=== PATIENT | female | born 1970 | race Caucasian/White ===

== ENCOUNTER → 2017-08-19 12:22 | Outpatient (POV) | payer MEDICARE, BC, SELFPAY | PROVIDERS: Visit Provider Neurological Surgery | DX: Z00.00 Encounter for general adult medical examination without abnormal findings (principal) ==

== ENCOUNTER → 2019-01-16 08:07 | Outpatient (CLI) | payer MEDICARE, BC, SELFPAY ==
[2019-01-16 08:28] LABS: Basophils % 0.5 % (0.1-2.0); Eosinophils # 0.1 K/mm3 (0.0-0.4); Eosinophils % 1.2 % (0.1-12.0); Hematocrit 43.8 % (37.0-47.0); Hemoglobin 14.4 g/dL (12.2-16.2); Lymphocytes # 1.6 K/mm3 (0.7-4.5); Lymphocytes % 20.3 % (10-50); Mean Corpuscular Hemoglobin 34.9 pg (27.0-31.2); Mean Corpuscular Volume 105.9 fl (81-99); Mean Platelet Volume 6.9 fl (7.4-10.4); Monocytes # 0.3 K/mm3 (0.1-1.0); Monocytes % 3.8 % (1.7-9.3); Neutrophils # 5.8 K/mm3 (1.8-7.8); Neutrophils % 74.2 % (37.0-80.0); Platelet Count 270 K/mm3 (142-424); Red Blood Count 4.14 M/mm3 (4.20-5.40); Red Cell Distribution Width 14.2 % (11.5-17.5); White Blood Count 7.9 K/mm3 (4.8-10.8)
[2019-01-16 08:51] LABS: INR 1.01 (0.9-1.1); Prothrombin Time 10.5 seconds (9.4-11.8)
[2019-01-16 11:03] LABS: Alanine Aminotransferase 38 U/L (12-78); Albumin Level 3.2 gm/dL (3.4-5.0); Alkaline Phosphatase 61 U/L (46-116); Anion Gap 11.4 mEq/L (5-15); Aspartate Amino Transferase 33 U/L (15-37); Bilirubin,Total 0.5 mg/dL (0.2-1.0); Blood Urea Nitrogen 8 mg/dL (7-18); Carbon Dioxide 27 mmol/L (21.0-32.0); Chloride 106 mmol/L (98-107); Chol/HDL Ratio 3.5 (1-3.5); Cholesterol 171 mg/dL (140-200); Creatinine,Serum 0.98 mg/dL (0.55-1.02); Estimated Glomerular Filt Rate 61 ml/min (>60); Free T4 (Free Thyroxine) 0.75 ng/dl (0.76-1.46); GFR (African American) 74 ML/MIN (>60); Globulin 3.2 gm/dl (1.3-3.2); Glucose 81 mg/dL (74-106); HDL Cholesterol 49 mg/dL (29-89); LDL Cholesterol 101 mg/dL (0-130); Potassium 3.4 mmoL/L (3.5-5.1); Sodium 141 mmol/L (136-145); Thyroid Stimulating Hormone 0.92 uIU/ml (0.358-3.740); Total Protein,Serum 6.4 gm/dL (6.4-8.2); Triglycerides 106 mg/dL (30-200); VLDL Cholesterol 21 mg/dL (0-40)
[2019-01-18 09:32] LABS: Vitamin D 25 Hydroxy 39.4 ng/mL (30.0-100.0)
== END ==
PROVIDERS: Visit Provider Emergency Medicine
DX: R53.83 Other fatigue (principal); F31.9 Bipolar disorder, unspecified; R07.9 Chest pain, unspecified; R53.1 Weakness; E78.5 Hyperlipidemia, unspecified; M54.9 Dorsalgia, unspecified
CPT/HCPCS: 36415; 80053; 80061; 82652; 84439; 84443; 85025; 85610

== ENCOUNTER → 2019-01-19 16:58 | Outpatient (CLI) | payer MEDICARE, BC, SELFPAY ==
[2019-01-19 19:06] LABS: Anion Gap 13.2 mEq/L (5-15); Blood Urea Nitrogen 13 mg/dL (7-18); Calcium 8.9 mg/dL (8.5-10.1); Carbon Dioxide 29 mmol/L (21.0-32.0); Chloride 102 mmol/L (98-107); Creatinine,Serum 0.94 mg/dL (0.55-1.02); Estimated Glomerular Filt Rate 64 ml/min (>60); GFR (African American) 78 ML/MIN (>60); Glucose 80 mg/dL (74-106); Potassium 4.2 mmoL/L (3.5-5.1); Sodium 140 mmol/L (136-145)
== END ==
LOC: LAB 16:59
PROVIDERS: Visit Provider Physician Assistant
DX: E87.6 Hypokalemia (principal)
CPT/HCPCS: 36415; 80048

== ENCOUNTER → 2019-01-23 10:45 | Outpatient (POV) | payer MEDICARE, BC, SELFPAY ==
[2019-01-23 11:05] VITALS: BP 137/82; PULSE 94; RESP 18; O2SAT 98; BMI 28.8
--- NOTE | 2019-01-23 13:26 | HMH.PMCON ---
Assessment and Plan (1) Cervical radiculopathy due to degenerative joint disease of spine Current visit: Yes Status: Chronic Category: Medical Code(s): M47.22 - Other spondylosis with radiculopathy, cervical region (2) Degenerative disc disease, lumbar Current visit: Yes Status: Chronic Category: Medical Code(s): M51.36 - Other intervertebral disc degeneration, lumbar region (3) Lumbar radiculopathy Current visit: Yes Status: Chronic Category: Medical Code(s): M54.16 - Radiculopathy, lumbar region (4) Cervical spondylosis Current visit: No Status: Chronic Qualifiers: Spinal osteoarthritis complication: with radiculopathy Qualified Code(s): M47.22 - Other spondylosis with radiculopathy, cervical region Category: Medical Code(s): M47.812 - Spondylosis without myelopathy or radiculopathy, cervical region - Assessment and plan all Dx Assessment and Plan for all problems:: We will plan an L4-L5 lumbar epidural steroid injection for the patient. I believe it may be beneficial given her symptomology. She is not on any anticoagulation therapy. I will follow-up with the patient after injection reassess her symptoms at that time she is been instructed to call the office if she has any issues prior to her next appointment. Dr. Xiao has reviewed this note and agrees with this plan of care. This note was dictated using voice recognition software and may contain errors or omissions HPI - Data of Consult Consult date: 01/23/19 Requesting Physician: Mally Bowden APRN Primary Care Provider: Braden Kerns MD Family Provider: Dr. Kerns - Consult Narrative Reason for consult: Back pain, neck pain History of present illness: Ms. Gibson is a 48 year old female who presents today for consultation in regards to her neck and back pain. Patient rates her pain an 8 out of 10 and states it is constant. Patient states her worst pain is in her low back and bilateral legs. She also has numbness and tingling in bilateral arms and hands. She has an old MRI from 2017 showing severe degenerative changes. Patient has been seen by Dr. Concteta martínez in 2017 who ordered her physical therapy. She did 5 sessions with some relief. Is currently on Motrin as needed for pain. Patient states she is an alcoholic. CC: Mally Bowden APRN [facility] History I have reviewed the patient's past medical history: Yes Medical History: Reports:: Anxiety, Depression Denies:: Asthma, Diabetes Mellitus Type 1, Diabetes Mellitus Type 2, Hyperlipidemia, Hypertension *Have you ever received a pneumonia vaccine?: Yes *Have you received a flu vaccine this season?: Yes Other Surgeries: Yes: Amputation: No Fractures: No - *Social History Smoking Status: Current every day smoker Tobacco Type: cigarettes # Packs/Day (cigarettes): 1 Alcohol Intake: current Alcohol Intake Frequency:: a few times a week Substance Use Type: marijuana *Occupational Status:: other Housing: house *Travel in the last 8 weeks: None - Psychiatric History Pschychiatric History:: Reports:: Anxiety, Depression Family Hx:: Cancer Review of Systems - Review of Systems ROS General: no recent weight change, no fever, no sleep disturbances Respiratory: no cough, no shortness of air, no recurring pulmonary infections Cardiovascular/Peripheral Vascular: No chest pain, No palpitations, no edema, no shortness of breath. Gastrointestinal: no incontinence, normal bowel movements reported Genitourinary: no incontinence Musculoskeletal: Back pain, neck pain Psychiatric: normal mood/ affect Neurological: [denies weakness in extremities], [denies balance issues] Meds Home Medications Medication Instructions Recorded Confirmed Type polyethylene glycol 3350 17 gram 17 g PO DAILY #30 each 01/10/19 Rx oral powder packet bupropion HCl 100 mg tablet 100 mg PO BID #60 tab 01/11/19 Rx lamotrigine 100 mg tablet 100 mg PO BID #
--- NOTE | 2019-01-23 13:31 | P.CONS_ITS ---
Assessment and Plan (1) Cervical radiculopathy due to degenerative joint disease of spine Current visit: Yes Status: Chronic Category: Medical Code(s): M47.22 - Other spondylosis with radiculopathy, cervical region (2) Degenerative disc disease, lumbar Current visit: Yes Status: Chronic Category: Medical Code(s): M51.36 - Other intervertebral disc degeneration, lumbar region (3) Lumbar radiculopathy Current visit: Yes Status: Chronic Category: Medical Code(s): M54.16 - Radiculopathy, lumbar region (4) Cervical spondylosis Current visit: No Status: Chronic Qualifiers: Spinal osteoarthritis complication: with radiculopathy Qualified Code(s): M47.22 - Other spondylosis with radiculopathy, cervical region Category: Medical Code(s): M47.812 - Spondylosis without myelopathy or radiculopathy, cervical region - Assessment and plan all Dx Assessment and Plan for all problems:: We will plan an L4-L5 lumbar epidural steroid injection for the patient. I believe it may be beneficial given her symptomology. She is not on any anticoagulation therapy. I will follow-up with the patient after injection reassess her symptoms at that time she is been instructed to call the office if she has any issues prior to her next appointment. Dr. Xiao has reviewed this note and agrees with this plan of care. This note was dictated using voice recognition software and may contain errors or omissions HPI - Data of Consult Consult date: 01/23/19 Requesting Physician: Mally Bowden APRN Primary Care Provider: Braden Kerns MD Family Provider: Dr. Kerns - Consult Narrative Reason for consult: Back pain, neck pain History of present illness: Ms. Gibson is a 48 year old female who presents today for consultation in regards to her neck and back pain. Patient rates her pain an 8 out of 10 and states it is constant. Patient states her worst pain is in her low back and bilateral legs. She also has numbness and tingling in bilateral arms and hands. She has an old MRI from 2017 showing severe degenerative changes. Patient has been seen by Dr. Concetta martínez in 2017 who ordered her physical therapy. She did 5 sessions with some relief. Is currently on Motrin as needed for pain. Patient states she is an alcoholic. CC: Mally Bowden APRN [facility] History I have reviewed the patient's past medical history: Yes Medical History: Reports:: Anxiety, Depression Denies:: Asthma, Diabetes Mellitus Type 1, Diabetes Mellitus Type 2, Hyperlipidemia, Hypertension *Have you ever received a pneumonia vaccine?: Yes *Have you received a flu vaccine this season?: Yes Other Surgeries: Yes: Amputation: No Fractures: No - *Social History Smoking Status: Current every day smoker Tobacco Type: cigarettes # Packs/Day (cigarettes): 1 Alcohol Intake: current Alcohol Intake Frequency:: a few times a week Substance Use Type: marijuana *Occupational Status:: other Housing: house *Travel in the last 8 weeks: None - Psychiatric History Pschychiatric History:: Reports:: Anxiety, Depression Family Hx:: Cancer Review of Systems - Review of Systems ROS General: no recent weight change, no fever, no sleep disturbances Respiratory: no cough, no shortness of air, no recurring pulmonary infections Cardiovascular/Peripheral Vascular: No chest pain, No palpitations, no edema, no shortness of breath. Gastrointestinal: no incontinence, normal bowel movements reported Genitourinary: no incontinence Musculoskeletal: Back pain
== END ==
PROVIDERS: PCP Emergency Medicine; Visit Provider Clinical Nurse Specialist Family Health
DX: M47.22 Other spondylosis with radiculopathy, cervical region (principal); M51.16 Intervertebral disc disorders with radiculopathy, lumbar region
CPT/HCPCS: 99202

== ENCOUNTER → 2019-03-06 10:09 | Outpatient (POV) | payer MEDICARE, BC, SELFPAY ==
[2019-03-06 10:43] VITALS: BP 156/90; PULSE 104; RESP 18; O2SAT 98; BMI 27.8
--- NOTE | 2019-03-06 11:10 | HMH.PAINSOAP ---
[facility] Pain Management SOAP Note Subjective:: She is a pleasant 48-year-old white female who presents today for follow-up after lumbar epidural steroid injection. She states she is impressed . Patient rates her pain a 3 out of 10 and states that she is able to do much more and is much more active. She is had 80% relief of her symptomology. Patient would like to repeat this we discussed finishing out the program of 3 epidurals and she is interested in this. Patient is currently not on any anticoagulation therapy and is continuing her anti-inflammatories and home stretching program. ROS General: no recent weight change, no fever, no sleep disturbances Respiratory: no cough, no shortness of air, no recurring pulmonary infections Cardiovascular/Peripheral Vascular: No chest pain, No palpitations, no edema, no shortness of breath. Gastrointestinal: no incontinence, normal bowel movements reported Genitourinary: no incontinence Musculoskeletal: Back pain, leg pain Psychiatric: normal mood/ affect Neurological: [denies weakness in extremities], [denies balance issues] Objective:: Physical Exam General: Alert and oriented x3, no acute distress, pleasant and cooperative, [on room air] Lungs: Resps E/U, Symmetrical chest expansion, Eyes: PERRL Musculoskeletal: Flexion and extension of lumbar spine somewhat guarded secondary to pain, deep tendon reflexes normal, strength in upper and lower extremities [5/5], [abnormal gait noted] Neurological: speech clear, sr. unix system administrator equal, no gross sensory deficits Assessment:: Degenerative disc disease lumbar spine with lumbar radiculopathy Plan:: We will repeat her L4-L5 lumbar epidural steroid injection given the efficacy of her last injection I believe it would be beneficial for her. Dr. Xiao has reviewed this note and agrees with this plan of care. This note was dictated using voice recognition software and may contain errors or omissions [facility] History I have reviewed the patient's past medical history: Yes Medical History: Reports:: Anxiety, Depression Denies:: Asthma, Cancer, Diabetes Mellitus Type 1, Diabetes Mellitus Type 2, Hyperlipidemia, Hypertension, MRSA, Seizures *Have you ever received a pneumonia vaccine?: Yes *Have you received a flu vaccine this season?: Yes Other Surgeries: Yes: Amputation: No Fractures: No - *Social History Smoking Status: Current every day smoker Tobacco Type: cigarettes # Packs/Day (cigarettes): 1 Alcohol Intake: never Alcohol Intake Frequency:: a few times a week Substance Use Type: marijuana *Occupational Status:: other Housing: house *Travel in the last 8 weeks: None - Psychiatric History Pschychiatric History:: Reports:: Anxiety, Depression Family Hx:: Cancer
--- NOTE | 2019-03-06 11:14 | P.CONS_ITS ---
[facility] Pain Management SOAP Note Subjective:: She is a pleasant 48-year-old white female who presents today for follow-up after lumbar epidural steroid injection. She states she is impressed . Patient rates her pain a 3 out of 10 and states that she is able to do much more and is much more active. She is had 80% relief of her symptomology. Patient would like to repeat this we discussed finishing out the program of 3 epidurals and she is interested in this. Patient is currently not on any anticoagulation therapy and is continuing her anti-inflammatories and home stretching program. ROS General: no recent weight change, no fever, no sleep disturbances Respiratory: no cough, no shortness of air, no recurring pulmonary infections Cardiovascular/Peripheral Vascular: No chest pain, No palpitations, no edema, no shortness of breath. Gastrointestinal: no incontinence, normal bowel movements reported Genitourinary: no incontinence Musculoskeletal: Back pain, leg pain Psychiatric: normal mood/ affect Neurological: [denies weakness in extremities], [denies balance issues] Objective:: Physical Exam General: Alert and oriented x3, no acute distress, pleasant and cooperative, [on room air] Lungs: Resps E/U, Symmetrical chest expansion, Eyes: PERRL Musculoskeletal: Flexion and extension of lumbar spine somewhat guarded secondary to pain, deep tendon reflexes normal, strength in upper and lower extremities [5/5], [abnormal gait noted] Neurological: speech clear, production line operator equal, no gross sensory deficits Assessment:: Degenerative disc disease lumbar spine with lumbar radiculopathy Plan:: We will repeat her L4-L5 lumbar epidural steroid injection given the efficacy of her last injection I believe it would be beneficial for her. Dr. Xiao has reviewed this note and agrees with this plan of care. This note was dictated using voice recognition software and may contain errors or omissions [facility] History I have reviewed the patient's past medical history: Yes Medical History: Reports:: Anxiety, Depression Denies:: Asthma, Cancer, Diabetes Mellitus Type 1, Diabetes Mellitus Type 2, Hyperlipidemia, Hypertension, MRSA, Seizures *Have you ever received a pneumonia vaccine?: Yes *Have you received a flu vaccine this season?: Yes Other Surgeries: Yes: Amputation: No Fractures: No - *Social History Smoking Status: Current every day smoker Tobacco Type: cigarettes # Packs/Day (cigarettes): 1 Alcohol Intake: never Alcohol Intake Frequency:: a few times a week Substance Use Type: marijuana *Occupational Status:: other Housing: house *Travel in the last 8 weeks: None - Psychiatric History Pschychiatric History:: Reports:: Anxiety, Depression Family Hx:: Cancer
== END ==
PROVIDERS: PCP Emergency Medicine; Visit Provider Clinical Nurse Specialist Family Health
DX: M51.16 Intervertebral disc disorders with radiculopathy, lumbar region (principal)
CPT/HCPCS: 99212

== ENCOUNTER → 2019-04-17 11:35 | Outpatient (POV) | payer MEDICARE, BC, SELFPAY ==
--- NOTE | 2019-04-17 12:26 | HMH.PAINSOAP ---
[facility] Pain Management SOAP Note Subjective:: Patient patient is a pleasant 48-year-old white female who presents today for follow-up after her second epidural steroid injection. She did not get as much relief with this one however she states her pain pattern has changed. Most of her pain is in her left side and going down her left leg. She is been recently dealing with some stressful factors at home due to the passing away of her significant other. Patient is interested in continuing injective therapy. Her first injection did give her 80% relief of her symptoms for almost a month. She is not on any anticoagulation therapy and is continuing a home stretching program. ROS General: no recent weight change, no fever, no sleep disturbances Respiratory: no cough, no shortness of air, no recurring pulmonary infections Cardiovascular/Peripheral Vascular: No chest pain, No palpitations, no edema, no shortness of breath. Gastrointestinal: no new onset incontinence, normal bowel movements reported Genitourinary: no new onset incontinence Musculoskeletal: Back pain, leg pain on the left side Psychiatric: normal mood/ affect, [denies depression], [denies anxiety] Neurological: [denies new onset weakness in extremities], [denies new onset balance issues] Objective:: Physical Exam General: Alert and oriented x3, no acute distress, pleasant and cooperative, [on room air] Lungs: Resps E/U, Symmetrical chest expansion, Eyes: PERRL Musculoskeletal: Flexion and extension of lumbar spine somewhat guarded secondary to pain, deep tendon reflexes normal, strength in upper and lower extremities [5/5], [abnormal gait noted] Neurological: speech clear, organ assembler equal, no gross sensory deficits Assessment:: Degenerative disc disease lumbar spine with lumbar radiculopathy Plan:: We will plan an L4-L5 lumbar transforaminal left-sided epidural steroid injection for the patient. I will follow-up with her after this reassess her symptoms at that time she is been instructed to call the office if she has any issues prior to her next appointment. She is not on any anticoagulation therapy. She is continuing anti-inflammatories. Dr. Xiao has reviewed this note and agrees with this plan of care. This note was dictated using voice recognition software and may contain errors or omissions [facility] History I have reviewed the patient's past medical history: Yes Medical History: Reports:: Anxiety, Depression Denies:: Asthma, Cancer, Diabetes Mellitus Type 1, Diabetes Mellitus Type 2, Hyperlipidemia, Hypertension, MRSA, Seizures *Have you ever received a pneumonia vaccine?: Yes *Have you received a flu vaccine this season?: Yes Other Medical History: Denies: Blood Transfusion Reaction Other Surgeries: Yes: Amputation: No Fractures: No - *Social History Smoking Status: Current every day smoker Tobacco Type: cigarettes # Packs/Day (cigarettes): 1 Alcohol Intake: current Alcohol Intake Frequency:: 3 or more drinks per day Substance Use Type: marijuana *Occupational Status:: other Housing: house *Travel in the last 8 weeks: None - Psychiatric History Pschychiatric History:: Reports:: Anxiety, Depression Family Hx:: Cancer
--- NOTE | 2019-04-17 12:33 | P.CONS_ITS ---
[facility] Pain Management SOAP Note Subjective:: Patient patient is a pleasant 48-year-old white female who presents today for follow-up after her second epidural steroid injection. She did not get as much relief with this one however she states her pain pattern has changed. Most of her pain is in her left side and going down her left leg. She is been recently dealing with some stressful factors at home due to the passing away of her significant other. Patient is interested in continuing injective therapy. Her first injection did give her 80% relief of her symptoms for almost a month. She is not on any anticoagulation therapy and is continuing a home stretching program. ROS General: no recent weight change, no fever, no sleep disturbances Respiratory: no cough, no shortness of air, no recurring pulmonary infections Cardiovascular/Peripheral Vascular: No chest pain, No palpitations, no edema, no shortness of breath. Gastrointestinal: no new onset incontinence, normal bowel movements reported Genitourinary: no new onset incontinence Musculoskeletal: Back pain, leg pain on the left side Psychiatric: normal mood/ affect, [denies depression], [denies anxiety] Neurological: [denies new onset weakness in extremities], [denies new onset balance issues] Objective:: Physical Exam General: Alert and oriented x3, no acute distress, pleasant and cooperative, [on room air] Lungs: Resps E/U, Symmetrical chest expansion, Eyes: PERRL Musculoskeletal: Flexion and extension of lumbar spine somewhat guarded secondary to pain, deep tendon reflexes normal, strength in upper and lower extremities [5/5], [abnormal gait noted] Neurological: speech clear, ethnoarchaeology professor equal, no gross sensory deficits Assessment:: Degenerative disc disease lumbar spine with lumbar radiculopathy Plan:: We will plan an L4-L5 lumbar transforaminal left-sided epidural steroid injection for the patient. I will follow-up with her after this reassess her symptoms at that time she is been instructed to call the office if she has any issues prior to her next appointment. She is not on any anticoagulation therapy. She is continuing anti-inflammatories. Dr. Xiao has reviewed this note and agrees with this plan of care. This note was dictated using voice recognition software and may contain errors or omissions [facility] History I have reviewed the patient's past medical history: Yes Medical History: Reports:: Anxiety, Depression Denies:: Asthma, Cancer, Diabetes Mellitus Type 1, Diabetes Mellitus Type 2, Hyperlipidemia, Hypertension, MRSA, Seizures *Have you ever received a pneumonia vaccine?: Yes *Have you received a flu vaccine this season?: Yes Other Medical History: Denies: Blood Transfusion Reaction Other Surgeries: Yes: Amputation: No Fractures: No - *Social History Smoking Status: Current every day smoker Tobacco Type: cigarettes # Packs/Day (cigarettes): 1 Alcohol Intake: current Alcohol Intake Frequency:: 3 or more drinks per day Substance Use Type: marijuana *Occupational Status:: other Housing: house *Travel in the last 8 weeks: None - Psychiatric History Pschychiatric History:: Reports:: Anxiety, Depression Family Hx:: Cancer
== END ==
PROVIDERS: PCP Emergency Medicine; Visit Provider Clinical Nurse Specialist Family Health
DX: M51.36 Other intervertebral disc degeneration, lumbar region (principal)
CPT/HCPCS: 99212

== ENCOUNTER → 2019-06-05 09:07 | Outpatient (POV) | payer MEDICARE, BC, SELFPAY ==
--- NOTE | 2019-06-05 09:37 | HMH.PAINSOAP ---
[facility] Pain Management SOAP Note Subjective:: Shunt is a pleasant 48-year-old white female who presents today for follow-up. Patient recently underwent a lumbar epidural steroid injection at L4-L5 and L5-S1 transforaminal epidural. He is being treated for low back pain with lumbar radiculopathy symptoms down the left leg. Patient says this is her third epidural steroid injection. She says she got approximately 50% relief following the injection. She is complaining of worsening pain, however, to her low back area with pain down bilateral legs now and pain to bilateral hips. Patient says that her legs feel weak and she is having frequent falls. She says that she feels like she is going to collapse with ambulation. Says she is concerned that she is going to break bones due to falling so often. Patient says she has not had any type of imaging of her lumbar spine. She rates her pain a 6 out of 10 today. Is continuing with anti-inflammatories and a home stretching program. Review of Systems General: No recent weight changes, no fever, no sleep disturbances Respiratory: No cough, no shortness of air, no recurring pulmonary infections Cardiovascular/peripheral vascular: No chest pain, no palpitations, no edema, no shortness of breath Gastrointestinal: No new onset incontinence, normal bowel movements reported Genitourinary: No new onset incontinence Musculoskeletal: Low back pain Psychiatric: Normal mood/affect Neurological: [Denies weakness in extremities], [denies balance issues] Objective:: Physical exam General: Alert and oriented x3, no acute distress, pleasant and cooperative, [on room air] Lungs: Respirations even and unlabored, symmetrical chest expansion Eyes: PERRL Musculoskeletal: Flexion and extension of lumbar spine somewhat guarded secondary to pain, deep tendon reflexes normal, strength in upper and lower extremities [5/5], [abnormal gait noted] Neurological: Speech clear, insight leader equal, no gross sensory deficit Assessment:: Degenerative disc disease lumbar spine with lumbar radiculopathy symptoms Plan:: I think we need to proceed with a MRI of her lumbar spine. She did get some relief from the lumbar epidural steroid injections, however, patient says that she is still having severe low back pain. She also seems to be having increased weakness in her bilateral lower extremities. We need to perform the MRI to any other underlying issues. We will see the patient back in the clinic following her MRI to discuss the plan of care. She has been instructed to contact the clinic if she has any concerns before her next appointment. She will continue with home program and anti-inflammatories. Dr. Xiao has reviewed this note and agrees with this plan of care. This note was dictated using voice recognition software and make contain errors or omissions. [facility] History I have reviewed the patient's past medical history: Yes Medical History: Reports:: Anxiety, Depression Denies:: Asthma, Cancer, Diabetes Mellitus Type 1, Diabetes Mellitus Type 2, Hyperlipidemia, Hypertension, MRSA, Seizures *Have you ever received a pneumonia vaccine?: No *Have you received a flu vaccine this season?: No Other Medical History: Denies: Blood Transfusion Reaction Other Surgeries: Yes: Amputation: No Fractures: No - *Social History Smoking Status: Current every day smoker Tobacco Type: cigarettes # Packs/Day (cigarettes): 1 Alcohol Intake: current Alcohol Intake Frequency:: a few times a week Substance Use Type: marijuana *Occupational Status:: other Housing: house *Travel in the last 8 weeks: None - Psychiatric History Pschychiatric History:: Reports:: Anxiety, Depression Family Hx:: Cancer
[2019-06-05 10:02] VITALS: BP 134/87; PULSE 87; RESP 18; O2SAT 98; BMI 28.3
== END ==
PROVIDERS: PCP Emergency Medicine; Visit Provider Clinical Nurse Specialist Family Health
DX: M51.16 Intervertebral disc disorders with radiculopathy, lumbar region (principal)
CPT/HCPCS: 99212

== ENCOUNTER → 2019-06-29 14:18 | Outpatient (CLI) | payer MEDICARE, BC, SELFPAY ==
--- NOTE | 2019-06-29 14:20 | MR_ITS ---
PROCEDURE: MR LUMBAR SPINE WO CON CLINICAL INDICATION: BACK PAIN COMPARISON: POWER DISTRIBUTOR/O MRI-C-SPINE W/O from 04/09/2017 TECHNIQUE: Standard multiplanar multiecho sequences are performed without contrast. 3-D MIP and myelographic images are also rendered and reviewed FINDINGS: There is moderate levoscoliosis apex at L2. There is degenerative Schmorl's node in the inferior endplate of T12 and superior L2. Discogenic endplate disease is noted at L2-L3 and L4. No malignant bone marrow signal is apparent. There is desiccation and loss of disc space heights T12-L1 through L5-S1. At T12-L1 there is asymmetrical disc extrusion into the left neural foramen with left foraminal stenosis. A disc herniation is not excluded. No mass effect on the thecal sac is apparent. At L1-2 there is mild disc bulge and there is hypertrophic facet disease with mild mass effect on the thecal sac. At L2-3 there is disc osteophyte complex with bilateral ligamentum flavum and facet hypertrophy with central spinal canal stenosis and there is right foraminal stenosis. Impingement of right L2 nerve root sleeve should be considered clinically. At L3-4 there is broad-based disc bulge with mild ligamentum flavum and facet hypertrophy with central spinal canal stenosis and bilateral foraminal stenosis. At L4-5 there is broad-based disc bulge with bilateral ligamentum flavum and facet hypertrophy with moderate central spinal canal stenosis and there is bilateral foraminal stenoses left greater than right. Clinical correlation for possible impingement of the left L4 nerve root sleeve is recommended. At L5-S1 there is mild disc bulge not appearing to exert significant mass effect upon neural structures. IMPRESSION: Multilevel degenerative disc and facet disease as described with central canal and foraminal stenoses greatest central canal stenosis L3-4 and L4-5. Dictated by: Kenny Quiñones 06/29/2019 16:02 Electronically signed by Kenny Quiñones in [place] 06/29/2019 16:02
== END ==
PROVIDERS: PCP Emergency Medicine; Visit Provider Clinical Nurse Specialist Family Health
DX: M54.5 Low back pain (principal)
CPT/HCPCS: 72148; 76376

== ENCOUNTER → 2019-07-11 10:13 | Outpatient (POV) | payer MEDICARE, BC, SELFPAY ==
[2019-07-11 10:31] VITALS: BP 140/85; PULSE 82; RESP 18; O2SAT 98; BMI 29.2
--- NOTE | 2019-07-11 12:09 | P.CONS_ITS ---
[facility] Pain Management SOAP Note Subjective:: Patient is a pleasant 49-year-old white female who presents today for follow-up after updated MRI. On her updated MRI patient has central spinal canal stenosis throughout her lumbar spine along with osteophytes and a L2 nerve root impingement. Patient was seen by Dr. Hylton back 3 years ago and completed physical therapy after that. Patient has done injective therapy at this time patient's back pain has worsened significantly patient and I discussed the need for repeat surgical consultation. She rates her pain today a 7 out of 10 ROS General: no recent weight change, no fever, no sleep disturbances Respiratory: no cough, no shortness of air, no recurring pulmonary infections Cardiovascular/Peripheral Vascular: No chest pain, No palpitations, no edema, no shortness of breath. Gastrointestinal: no new onset incontinence, normal bowel movements reported Genitourinary: no new onset incontinence Musculoskeletal: Back pain, leg pain Psychiatric: normal mood/ affect, Neurological: [denies new onset weakness in extremities], [denies new onset balance issues] Objective:: Physical Exam General: Alert and oriented x3, no acute distress, pleasant and cooperative, [on room air] Lungs: Resps E/U, Symmetrical chest expansion, Eyes: PERRL Musculoskeletal: Flexion and extension of lumbar spine somewhat guarded secondary to pain, deep tendon reflexes normal, strength in upper and lower extremities [5/5], [abnormal gait noted] Neurological: speech clear, tests superintendent equal, no gross sensory deficits Assessment:: 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 Hylton for consultation in regards to her updated MRI. Patient has tried epidural injections and this is not been beneficial for her long-term we have also discussed briefly other modalities of treatment if she is not a surgical candidate such as neuro stimulation, avert a flex procedure, pain pump. I will follow-up with her after she sees Dr. Hylton. Dr. Xiao has reviewed this note and agrees with this plan of care. This note was dictated using voice recognition software and may contain errors or omissions [facility] History I have reviewed the patient's past medical history: Yes Medical History: Reports:: Anxiety, Depression Denies:: Asthma, Cancer, Diabetes Mellitus Type 1, Diabetes Mellitus Type 2, Hyperlipidemia, Hypertension, MRSA, Seizures *Have you ever received a pneumonia vaccine?: Yes *Have you received a flu vaccine this season?: Yes Other Medical History: Denies: Blood Transfusion Reaction Other Surgeries: Yes: Amputation: No Fractures: No - *Social History Smoking Status: Current every day smoker Tobacco Type: cigarettes # Packs/Day (cigarettes): 1 Alcohol Intake: current Alcohol Intake Frequency:: a few times a week Substance Use Type: marijuana *Occupational Status:: other Housing: house *Travel in the last 8 weeks: None - Psychiatric History Pschychiatric History:: Reports:: Anxiety, Depression Family Hx:: Cancer
== END ==
PROVIDERS: PCP Emergency Medicine; Visit Provider Clinical Nurse Specialist Family Health
DX: M51.16 Intervertebral disc disorders with radiculopathy, lumbar region (principal); M25.80 Other specified joint disorders, unspecified joint; Z72.0 Tobacco use
CPT/HCPCS: 99212

== ENCOUNTER → 2019-07-27 14:36 | Outpatient (POV) | payer MEDICARE, BC, SELFPAY | PROVIDERS: PCP Neurological Surgery; Visit Provider Neurological Surgery | DX: Z00.00 Encounter for general adult medical examination without abnormal findings (principal) ==

== ENCOUNTER → 2019-07-28 08:51 | Outpatient (CLI) | payer MEDICARE, BC, SELFPAY ==
--- NOTE | 2019-07-28 08:52 | MM_ITS ---
PROCEDURE: MM DIG SCREENING MAMM BI W/CAD CLINICAL INDICATION: screening COMPARISON: DMSB DIG MAMM-SCREEN EMILIE W/CAD from 06/16/2016 TECHNIQUE: Standard CC and MLO images and 3D Tomosynthesis was obtained. R2 CAD reviewed. FINDINGS: The breasts are of average density. Multiple benign appearing lymph nodes project over the pectoral muscles consistent with lymph nodes and 1 in the prepectoral region of the right breast 7 millimeters is also likely a lymph node There are indeterminate morphology microcalcifications clustered in the central right breast at the level of the nipple line on the MLO view and just lateral on the CC view. Additional magnification views are recommended. A well-circumscribed 5 millimeter nodule is seen in the superior and medial retroareolar left breast. Ultrasound is recommended to further evaluate. IMPRESSION: BI-RAD Category: 0 Need Additional Imaging Evaluation FOLLOW-UP: (A letter has been sent to the patient regarding results of the study.) Dictated by: Kenny Quiñones 07/28/2019 14:13 Electronically signed by Kenny Quiñones in [place] 07/28/2019 14:13
== END ==
PROVIDERS: PCP Emergency Medicine; Visit Provider Emergency Medicine
DX: Z12.31 Encounter for screening mammogram for malignant neoplasm of breast (principal)
CPT/HCPCS: 77063; 77067

== ENCOUNTER → 2019-08-15 13:41 | Outpatient (CLI) | payer MEDICARE, BC, SELFPAY ==
--- NOTE | 2019-08-15 13:45 | MM_ITS ---
PROCEDURE: MM DIG MAMM DX UNILAT RT CAD Digital Breast Tomosynthesis Included CLINICAL INDICATION: microcalcifications Follow-up abnormal mammogram COMPARISON: DMSB DIG MAMM-SCREEN EMILIE W/CAD from 06/16/2016 MM DIG SCREENING MAMM BI W/CAD from 07/28/2019 TECHNIQUE: Standard CC and MLO images and 3D Tomosynthesis was obtained. R2 CAD reviewed. FINDINGS: Mag views of the right breast confirm suspicious calcifications in the lateral aspect of the right breast just off of midline centrally. These are somewhat pleomorphic and biopsy is suggested. It is initially suggested at the biopsy be attempted by stereotactic technique. It may however be difficult to localize the calcifications. This however was not be known until the patient is placed in the stereotactic unit. IMPRESSION: BI-RAD Category: 4 Suspicious Abnormality - Biopsy Considered FOLLOW-UP: BIO Biopsy Recommended (A letter has been sent to the patient regarding results of the study.) Dictated by: Andrae Tsang MD 08/15/2019 14:36 Electronically signed by Andrae Tsang MD in [place] 08/15/2019 14:36
--- NOTE | 2019-08-15 13:45 | US_ITS ---
PROCEDURE: US BREAST LT COMPLETE CLINICAL INDICATION: nodule left breast COMPARISON: MM DIG SCREENING MAMM BI W/CAD from 07/28/2019 MM DIG MAMM DX UNILAT RT CAD from 08/15/2019 FINDINGS: There is some mild ductal ectasia at the 10 o'clock region. No discrete cyst or solid lesion is evident. IMPRESSION: No suspicious sonographic abnormalities that would correspond to the mammographic abnormality. BI-RADS category 3 probably benign finding Recommend six-month mammographic follow-up Dictated by: Andrae Tsang MD 08/18/2019 13:29 Electronically signed by Andrae Tsang MD in [place] 08/18/2019 13:29
== END ==
PROVIDERS: PCP Emergency Medicine; Visit Provider Physician Assistant
DX: N63.0 Unspecified lump in unspecified breast (principal); R92.8 Other abnormal and inconclusive findings on diagnostic imaging of breast; R92.0 Mammographic microcalcification found on diagnostic imaging of breast
CPT/HCPCS: 76641; 77061; 77065; G0279

== ENCOUNTER → 2019-09-13 10:55 | Outpatient (CLI) | payer MEDICARE, BC, SELFPAY ==
--- NOTE | 2019-09-13 10:55 | MM_ITS ---
PROCEDURE: MM STEREOTACTIC LOC RT Post biopsy mammogram/clip placement. Specimen radiograph CLINICAL INDICATION: stereotactic breast bx- abn mamm Abnormal mammogram with suspicious calcifications COMPARISON: MM DIG SCREENING MAMM BI W/CAD from 07/28/2019 MM DIG MAMM DX UNILAT RT CAD from 08/15/2019 MM CLIP PLACEMENT RT from 09/13/2019 MM SURGICAL SPECIMEN RT from 09/13/2019 TECHNIQUE: Following obtaining informed consent and time-out procedure with oral analgesia with 1 mg of alprazolam and 5 mg hydrocodone with 325 mg acetaminophen, the patient was placed in the stereotactic table and the calcifications of interest were localized. Under aseptic conditions and local anesthesia with 1 percent buffered lidocaine and deeper anesthesia with lidocaine mixed with epinephrine, mammography needle was inserted in multiple mammotome biopsies were obtained. Specimen radiograph demonstrated calcifications of interest. A clip was then placed. Post biopsy mammogram showed good placement of the clip with post biopsy changes with removal of the suspicious calcifications. There were few small calcifications remaining. The patient tolerated the procedure well without evidence of immediate complication. FINDINGS: Pathology: Proliferative fibrocystic change with multifocal adenosis, apical and adenosis, and sclerosing micro papillomas with calcification.. No atypia or for in situ carcinoma or invasive carcinoma. IMPRESSION: Successful stereotactic directed biopsy of the right breast showing benign findings. Recommend six-month mammographic follow-up per routine protocol. (A letter has been sent to the patient regarding results of the study.) Dictated by: Andrae Tsang MD 09/20/2019 17:30 Electronically signed by Andrae Tsang MD in [place] 09/20/2019 17:30
--- NOTE | 2019-09-13 10:59 | MM_ITS ---
PROCEDURE: MM CLIP PLACEMENT RT CLINICAL INDICATION: stereotactic breast bx- abn mamm Abnormal mammogram with suspicious calcifications COMPARISON: MM DIG SCREENING MAMM BI W/CAD from 07/28/2019 MM DIG MAMM DX UNILAT RT CAD from 08/15/2019 MM CLIP PLACEMENT RT from 09/13/2019 MM SURGICAL SPECIMEN RT from 09/13/2019 TECHNIQUE: Following obtaining informed consent and time-out procedure with oral analgesia with 1 mg of alprazolam and 5 mg hydrocodone with 325 mg acetaminophen, the patient was placed in the stereotactic table and the calcifications of interest were localized. Under aseptic conditions and local anesthesia with 1 percent buffered lidocaine and deeper anesthesia with lidocaine mixed with epinephrine, mammography needle was inserted in multiple mammotome biopsies were obtained. Specimen radiograph demonstrated calcifications of interest. A clip was then placed. Post biopsy mammogram showed good placement of the clip with post biopsy changes with removal of the suspicious calcifications. There were few small calcifications remaining. The patient tolerated the procedure well without evidence of immediate complication. FINDINGS: Pathology: Proliferative fibrocystic change with multifocal adenosis, apical and adenosis, and sclerosing micro papillomas with calcification.. No atypia or for in situ carcinoma or invasive carcinoma. IMPRESSION: Successful stereotactic directed biopsy of the right breast showing benign findings. Recommend six-month mammographic follow-up per routine protocol. (A letter has been sent to the patient regarding results of the study.) Dictated by: Andrae Tsang MD 09/20/2019 17:32 Electronically signed by Andrae Tsang MD in [place] 09/20/2019 17:32
== END ==
PROVIDERS: PCP Emergency Medicine; Visit Provider Emergency Medicine
DX: R92.8 Other abnormal and inconclusive findings on diagnostic imaging of breast (principal)
CPT/HCPCS: 19081; 76098; 77065; 88305

== ENCOUNTER 2020-01-11 10:12 | Observation (INO) | payer MEDICARE, BC, SELFPAY ==
[2020-01-11] VITALS (9 sets, daily range): BP systolic 143–155; BP diastolic 72–122; PULSE 98–123; RESP 14–18; TEMP 36.6–37; O2SAT 90–98; BMI 27.2; BMI 25.7
[2020-01-11 10:49] LABS: Basophils # 0.1 K/mm3 (0-0.2); Eosinophils # 0.2 K/mm3 (0.0-0.4); Lymphocytes % 9.1 % (10-50); Monocytes # 0.4 K/mm3 (0.1-1.0); Monocytes % 3.6 % (1.7-9.3)
--- NOTE | 2020-01-11 10:50 | HMH.EDFALL ---
ED Disposition Clinical Impression: Hypokalemia Back pain Qualifiers: Back pain location: low back pain Chronicity: acute Back pain laterality: midline Sciatica presence: without sciatica Qualified Code(s): M54.5 - Low back pain Disposition: Admitted As Inpatient Condition on Discharge: Fair Referrals: Braden Kerns MD [Primary Care Provider] - - Critical Care Critical Care Time: No Attestation: On , the high probability of a clinically significant, sudden or life threatening deterioration of the following system(s) required my full and direct attention, intervention and personal management. The time I documented below is in addition to time spent performing reported procedures but includes the following listed in this critical care notation. Medical Decision Making - Medical Records Medical records reviewed: Yes: I reviewed the patient's medical records. MR Comment: This is a 49-year-old female brought in by her daughter with complaints that she fell last night and hurt her back; she recently had back surgery at , has also been confused and hallucinating, there is also history of pills missing from bottles this includes Valium and hydrocodone as well as gabapentin, and initially appeared to be overdosed, was quite alert and seen yawning after she was given Narcan. Patient's work-up shows normal no acute findings in CTs of the lumbar spine and thoracic spine, urine drug screen is positive for THC opiates and benzodiazepines. Given IV fluids Toradol as well as Solu-Medrol and is low at 2.8 potassium; Spoke to [facility] and they do not have beds and also advised that patient seems to be neurologically stable and can be admitted locally for pain control spoke to Dr. Merritt and he has accepted patient - Rey Inquiry Pt receiving controlled substance: Yes Rey was queried for this patient: No Risks and benefits of using a controlled substance: were discussed with pt by me Vital Signs: 01/11/20 10:14 01/11/20 10:44 01/11/20 11:07 Temperature 98.6 F Temperature Source Oral Pulse Rate [Radial] 111 H 120 H 123 H Respiratory Rate 14 Blood Pressure [Right Arm] 152/101 H 155/122 H 155/122 H Blood Pressure Mean [Right Arm] 118 133 133 Blood Pressure Source [Right Arm] Automatic Cuff Blood Pressure Position [Right Arm] Sitting Supine 02 Sat by Pulse Oximetry 96 Oxygen Delivery Method Room Air 01/11/20 14:00 01/11/20 14:27 Temperature Temperature Source Pulse Rate [Radial] 103 H Respiratory Rate Blood Pressure [Right Arm] 144/84 H Blood Pressure Mean [Right Arm] 104 Blood Pressure Source [Right Arm] Automatic Cuff Blood Pressure Position [Right Arm] Supine 02 Sat by Pulse Oximetry 90 L 96 Oxygen Delivery Method Room Air Nasal Cannula - Lab Data Lab results reviewed: Yes: I reviewed the patient's lab results. Lab Results 01/11/20 10:41: WBC 10.3, RBC 2.44 L, Hgb 9.0 L, Hct 27.2 L, MCV 111.1 H, MCH 36.9 H, MCHC 33.2, RDW 15.2, Plt Count 602 H, MPV 8.0, Neut % (Auto) 85.2 H, Lymph % (Auto) 9.1 L, Banks % (Auto) 3.6, Eos % (Auto) 1.6, Baso % (Auto) 0.5, Neut # (Auto) 8.8 H, Lymph # (Auto) 0.9, Banks # (Auto) 0.4, Eos # (Auto) 0.2, Baso # (Auto) 0.1, Total Counted 100, Neutrophils % (Manual) 92 H, Lymphocytes % (Manual) 4 L, Monocytes % (Manual) 3, Eosinophils % (Manual) 1, Platelet Estimate Moderate increase, Hypochromasia 1+, Poikilocytosis 2+, Anisocytosis 2+, Macrocytosis 2+ 01/11/20 10:41: Sodium 139, Potassium 2.8 L*, Chloride 97 L, Carbon Dioxide 36 H, Anion Gap 8.8, BUN 5 L, Creatinine 0.60, Estimated Creat Clear 112, Estimated GFR 107, Est GFR ( Amer) 130, Glucose 104 H, Calcium 8.8, Total Bilirubin 0.4, AST 30, ALT 48, Alkaline Phosphatase 93, Total Protein 6.2 L, Albumin 2.9 L, Globulin 3.3 H, Albumin/Globulin Ratio 0.9 L 01/11/20 11:30: Urine Color Yellow, Urine Appearance Clear, Urine pH 7.5, Ur Specific [place] 1.015, Urine Protein Negative, Urine Glucose (U
[2020-01-11 10:53] LABS: Basophils % 0.5 % (0.1-2.0); Eosinophils % 1.6 % (0.1-12.0); Hematocrit 27.2 % (37.0-47.0); Lymphocytes # 0.9 K/mm3 (0.7-4.5); Mean Corpuscular HGB Conc 33.2 g/dL (31.8-35.4); Mean Corpuscular Hemoglobin 36.9 pg (27.0-31.2); Mean Corpuscular Volume 111.1 fl (81-99); Neutrophils # 8.8 K/mm3 (1.8-7.8); Neutrophils % 85.2 % (37.0-80.0); Platelet Count 602 K/mm3 (142-424); Red Blood Count 2.44 M/mm3 (4.20-5.40); Red Cell Distribution Width 15.2 % (11.5-17.5); White Blood Count 10.3 K/mm3 (4.8-10.8)
[2020-01-11 10:54] LABS: MANUAL DIFFERENTIAL MANUAL DIFFERENTIAL (MANUAL DIFF)
[2020-01-11 10:56] LABS: Chloride 97 mmol/L (98-107); Sodium 139 mmol/L (136-145)
[2020-01-11 10:58] LABS: Alanine Aminotransferase 48 U/L (12-78); Alkaline Phosphatase 93 U/L (38-126); Aspartate Amino Transferase 30 U/L (14-36); Bilirubin,Total 0.4 mg/dl (0.2-1.3); Blood Urea Nitrogen 5 mg/dl (7-17); Creatinine Clearance Estimated 112 mL/min (50-200); Estimated Glomerular Filt Rate 107 ml/min (>60); GFR (African American) 130 ML/MIN (>60); Potassium 2.8 mmoL/L (3.5-5.1)
--- NOTE | 2020-01-11 10:58 | CT_ITS ---
PROCEDURE: CT LUMBAR SPINE WO CON CLINICAL HISTORY: back pain, fall yesterday Posttraumatic pain COMPARISON: No exams were available for comparison TECHNIQUE: Axial images obtained with sagittal and coronal reformats. All CT scans at the facility use one or more dose reduction, viz: automated exposure control, ma/kV adjustment per patient size (including targeted exams where dose is matched to indication, i.e. head), or iterative reconstruction technique. FINDINGS: There is normal alignment. There has been prior surgery with inter pedicular screws bilaterally at T11 and T12 on the right at L1, on the left at L2 and L3, on the right at L4, bilaterally at L5 and S1. These are connected to posterior rods. There is mild lumbar scoliosis convex left. Disc spacer devices are present at L2-L3 L3-L4 and L4-5. There is 3 mm anterolisthesis of L4 on L5. There is multilevel lumbar spondylosis with degenerative disc disease from T11-S1. There is mild foraminal narrowing on the left at T11-T12 from facet hypertrophic change. T12-L1: Mild bilateral foraminal narrowing at T12-L1. L1-L2: Unremarkable. L2-L3: Endplate sclerosis is present at L2-L3. Facet hypertrophic changes are present with right lateral recess and foraminal narrowing. L3-L4: Ligamentum hypertrophy with bilateral lateral recess narrowing L4-5: Bulging disc with postsurgical changes. Prior left-sided laminectomy. Facet and ligamentum hypertrophy L5-S1: Unremarkable. There is some coarse calcification within the psoas muscle on the right and within the posterior paraspinal soft tissues. There is diffuse increased soft tissue density posteriorly from the lower thoracic region all the way to the sacrum. There is some calcification noted in this area. Postsurgical hematoma/seroma is considered. This measures for length of at least 20 cm measuring up to 3.5 cm AP and 5.6 cm transverse. There is a small amount of small soft tissue gas on the left at a laminotomy defect at L4-L5 which could be due to the recent surgery. There are no previous lumbar studies available for comparison.. IMPRESSION: 1. No acute fracture. 2. Postsurgical changes with lumbar spondylosis. Please see above for detailed description at specific levels. 3. Diffuse increased soft tissue density in the posterior paraspinal region from the lower thoracic level to the sacrum. This is nonspecific and could be due to hematoma, seroma, or even abscess. Please correlate with clinical findings. There is some faint calcification in this area as well which could be seen with diffuse fibrotic changes and scarring. There are no previous exams available for comparison 4. Prior laminotomy on the left at L4-5 with some faint gas within the soft tissues at the laminectomy site and in the epidural region which could be postsurgical. Follow-up suggested Dictated b Andrae Tsang MD 01/11/2020 13:05 Andrae Tsang MD in [place] 01/11/2020 13:05
--- NOTE | 2020-01-11 10:58 | PC.NURSE ---
notified of potassium of 2.8.
[2020-01-11 10:59] LABS: Albumin Level 2.9 g/dl (3.5-5.0); Albumin/Globulin Ratio 0.9 (1.1-1.8); Anion Gap 8.8 mEq/L (5-15); Calcium 8.8 mg/dl (8.4-10.2); Carbon Dioxide 36 mmol/L (22.0-30.0); Globulin 3.3 g/dL (1.3-3.2); Glucose 104 mg/dl (74-100); Total Protein,Serum 6.2 g/dl (6.3-8.2)
[2020-01-11 11:00] LABS: Eosinophils % 1 % (0-3); Lymphocytes % 4 % (10-50); Monocytes % 3 % (2-9); Neutrophils % 92 % (42-76); Total Cells Counted 100
[2020-01-11 11:01] LABS: Anisocytosis 2+; Hypochromasia 1+; Macrocytosis 2+; Platelet Estimate Moderate Increase; Poikilocytosis 2+
--- NOTE | 2020-01-11 11:10 | PC.NURSE ---
pt writhing around on stretcher after giving narcan. pt confused, having difficulty following commands.
[2020-01-11 11:40] LABS: Microscopic, Urine URINE MICROSCOPIC (MICROSCOPIC)
[2020-01-11 11:46] LABS: Appearance,Urine CLEAR (Clear); Bilirubin,Urine Negative (Negative); Blood, Urine Negative (Negative); Color,Urine YELLOW (Yellow); Glucose,Urine (UA) Negative (Negative); Ketones,Urine Negative (Negative); Leukocyte Esterase,Urine Negative (Negative); Nitrate,Urine Negative (Negative); PH,Urine 7.5 (5.0-8.5); Protein,Urine Negative (Negative); Specific Gravity, Urine 1.015 (1.005-1.030)
[2020-01-11 11:53] LABS: Squamous Epithelial Cell,Urine Occasional #/hpf (0-5)
[2020-01-11 11:55] LABS: Barbiturates Screen,Urine Negative ng/ml (<200)
[2020-01-11 11:56] LABS: Benzodiazepines Screen,Urine Positive ng/ml (<200)
--- NOTE | 2020-01-11 11:56 | CT_ITS ---
PROCEDURE: CT HEAD/BRAIN WO CON CLINICAL INDICATION: AMS The Altered mental status, altered level of consciousness, confusion, disorientation, recent fall with injury and pain COMPARISON: CT HDWO CT HEAD W/O CONTRAST from 09/05/2015 TECHNIQUE: Axial images obtained. All CT scans at the facility use one or more dose reduction, viz: automated exposure control, ma/kV adjustment per patient size (including targeted exams where dose is matched to indication, i.e. head), or iterative reconstruction technique. FINDINGS: There is generalized motion artifact despite using helical technique. No midline shift or mass effect. No obvious areas of intracranial hemorrhage or hydrocephalus.. No depressed calvarial fractures IMPRESSION: No acute finding Dictated b Andrae Tsang MD 01/11/2020 12:49 Andrae Tsang MD in [facility] 01/11/2020 12:49
[2020-01-11 11:57] LABS: Amphetamine/Metha Screen,Urine Negative ng/ml (<1000); Cannabinoid Screen,Urine Positive ng/ml (<50)
[2020-01-11 11:58] LABS: Cocaine Screen,Urine Negative ng/ml (<300); Methadone Screen,Urine Negative ng/ml (<300)
[2020-01-11 11:59] LABS: Opiate Screen,Urine Positive ng/ml (<300)
[2020-01-11 12:00] LABS: Phencyclidine Screen,Urine Negative ng/ml (<25)
--- NOTE | 2020-01-11 12:15 | PC.NURSE ---
pt restless writhing around on stretcher, pt confused
--- NOTE | 2020-01-11 12:22 | CT_ITS ---
PROCEDURE: CT THORACIC SPINE WO CON CLINICAL HISTORY: fall Posttraumatic pain COMPARISON: CT CSWO CT CERVICAL SPINE W/O CONT from 09/05/[address] LUMBAR SPINE WO CON from 01/11/2020 TECHNIQUE: Axial images obtained with sagittal and coronal reformats. All CT scans at the facility use one or more dose reduction, viz: automated exposure control, ma/kV adjustment per patient size (including targeted exams where dose is matched to indication, i.e. head), or iterative reconstruction technique. FINDINGS: S-shaped curvature of the thoracic spine with upper thoracic scoliosis convex left and lower thoracic scoliosis convex right. There are inter pedicular screws with connecting rods at T10-T11 and T12.. The inter pedicular screws on the left are slightly position low along the lateral aspect of the pedicle at T10 and T11 No acute fracture or dislocation is evident. The there is a mild degree of motion artifact which does somewhat obscure fine detail. There is degenerative disc disease at C6 and C7.. IMPRESSION: No acute fracture. Scoliosis with postsurgical changes Dictated b Andrae Tsang MD 01/11/2020 12:54 Andrae Tsang MD in [facility] 01/11/2020 12:54
--- NOTE | 2020-01-11 14:00 | PC.NURSE ---
pt resting quietly family at bedside updated on plan of care
--- NOTE | 2020-01-11 15:09 | PC.NURSE ---
Dr German from talking to Dr Hatch
--- NOTE | 2020-01-11 15:31 | PC.NURSE ---
Attempted to call Care Management for admission. No answer.
--- NOTE | 2020-01-11 15:36 | PC.NURSE ---
Lab notified of COVID swab.
[2020-01-11 16:08] LABS: Adenovirus,PCR Not Detected (NotDetected); Bordetella Pertussis Not Detected (NotDetected); Chlamydophila Pneumoniae, PCR Not Detected (NotDetected); Coronavirus 19, PCR Not Detected (NotDetected); Coronavirus 229E Not Detected (NotDetected); Coronavirus NL63 Not Detected (NotDetected); Coronavirus OC43 Not Detected (NotDetected); Coronovirus HKU1,PCR Not Detected (NotDetected); Human Metapneumovirus Not Detected (NotDetected); Influenza A, PCR Not Detected (NotDetected); Influenza AH1, 2009 Not Detected (NotDetected); Influenza AH1, PCR Not Detected (NotDetected); Influenza AH3,PCR Not Detected (NotDetected); Influenza B, PCR Not Detected (NotDetected); Mycoplasma Pneumoniae, PCR Not Detected (NotDetected); Parainfluenza 1, PCR Not Detected (NotDetected); Parainfluenza 2, PCR Not Detected (NotDetected); Parainfluenza 3, PCR Not Detected (NotDetected); Parainfluenza 4, PCR Not Detected (NotDetected); Respiratory Syncytial Virus Not Detected (NotDetected); Rhinovirus/Enterovirus Not Detected (NotDetected)
--- NOTE | 2020-01-11 16:15 | PC.NURSE ---
family updated on plan of care
--- NOTE | 2020-01-11 17:50 | PC.NURSE ---
Pt arrived to floor at this time via stretcher
--- NOTE | 2020-01-11 18:33 | PC.NURSE ---
Admission orders placed per Dr. Hatch's verbal orders.
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
[2020-01-12 04:00] VITALS: BP 134/85; PULSE 113; RESP 16; TEMP 37.2; O2SAT 96
[2020-01-12 05:15] VITALS: BMI 26.6
--- NOTE | 2020-01-12 05:40 | PC.NURSE ---
Pt is A&Ox4. No complaints reported to staff. Pt ambulating in room w/ walker and stand by assist. Pt was able to take a shower this shift.
[2020-01-12 06:08] LABS: Basophils % 0.3 % (0.1-2.0); Eosinophils % 0.3 % (0.1-12.0); Hemoglobin 8.7 g/dL (12.2-16.2); Lymphocytes # 1.5 K/mm3 (0.7-4.5); Lymphocytes % 11.4 % (10-50); Mean Corpuscular HGB Conc 32.4 g/dL (31.8-35.4); Mean Corpuscular Hemoglobin 35.6 pg (27.0-31.2); Mean Corpuscular Volume 110.1 fl (81-99); Mean Platelet Volume 7.8 fl (7.4-10.4); Monocytes # 0.5 K/mm3 (0.1-1.0); Monocytes % 4.1 % (1.7-9.3); Neutrophils # 10.6 K/mm3 (1.8-7.8); Neutrophils % 83.8 % (37.0-80.0); Platelet Count 667 K/mm3 (142-424); Red Blood Count 2.46 M/mm3 (4.20-5.40); Red Cell Distribution Width 15.1 % (11.5-17.5); White Blood Count 12.6 K/mm3 (4.8-10.8)
[2020-01-12 06:13] LABS: Chloride 101 mmol/L (98-107)
[2020-01-12 06:14] LABS: Potassium 3.3 mmoL/L (3.5-5.1); Sodium 137 mmol/L (136-145)
[2020-01-12 06:16] LABS: Blood Urea Nitrogen 8 mg/dl (7-17); Creatinine Clearance Estimated 110 mL/min (50-200); Estimated Glomerular Filt Rate 107 ml/min (>60); GFR (African American) 130 ML/MIN (>60)
[2020-01-12 06:17] LABS: Anion Gap 7.3 mEq/L (5-15); Calcium 8.5 mg/dl (8.4-10.2); Carbon Dioxide 32 mmol/L (22.0-30.0); Glucose 94 mg/dl (74-100)
--- NOTE | 2020-01-12 07:42 | P.CONPHA_ITS ---
[facility] Pharmacy VTE Monitoring - Patient Demographics Admission date: 01/11/20 Report Date: 01/12/20 Time: 07:42 Allergies/Adverse Reactions: Patient Allergies No Known Allergies Allergy (Verified 10/18/19 12:54) Height: 1.5 m Weight: 60.016 kg Patient Problems: Current Active Problems Hypokalemia (Acute) Back pain (Acute) - VTE Risk Labs: VTE Related Lab Results Hgb 8.7 g/dL (12.2-16.2) L 01/12/20 05:48 Hct 27.0 % (37.0-47.0) L 01/12/20 05:48 Plt Count 667 K/mm3 (142-424) H 01/12/20 05:48 BUN 8 mg/dl (7-17) D 01/12/20 05:48 Creatinine 0.60 mg/dl (0.52-1.04) 01/12/20 05:48 Estimated Creat Clear 110 mL/min (50-200) 01/12/20 05:48 VTE Score: 5 VTE Risk Level: Low Risk - Prophylaxis VTE Prophylaxis Ordered?: Yes Types of VTE Prophylaxis: TEDS Knee High Location of Applied Device: Bilateral Lower Extremeties - VTE Diagnosis Confirmed Treatment or plan recommended: Continue Current Treatment
[2020-01-12 07:52] VITALS: BP 131/78; PULSE 100; RESP 17; TEMP 36.8; O2SAT 96
--- NOTE | 2020-01-12 08:22 | HMH.HP ---
*Admission Date: 01/11/20 [facility] History Medical History: Reports:: Anxiety, Depression Denies:: Asthma, Cancer, Diabetes Mellitus Type 1, Diabetes Mellitus Type 2, Hyperlipidemia, Hypertension, MRSA, Seizures *Have you ever received a pneumonia vaccine?: No *Have you received a flu vaccine this season?: No Other Medical History: Reports: Arthritis, Sinus Problems. Denies: Blood Transfusion Reaction Other Surgeries: Yes: Amputation: No Fractures: No - *Social History Last grade of school completed: GED Smoking Status: Current every day smoker Tobacco Type: cigarettes # Packs/Day (cigarettes): 1 Alcohol Intake: never Alcohol Intake Frequency:: a few times a week Substance Use Type: marijuana *Occupational Status:: unemployed, disabled Housing: house *Travel in the last 8 weeks: None - Psychiatric History Pschychiatric History:: Reports:: Anxiety, Depression Family Hx:: Cancer, Diabetes, Hyperlipidemia, Hypertension, Alcoholism Meds Home Medications Medication Instructions Recorded Confirmed Type polyethylene glycoL 3350 17 g PO DAILY 02/10/19 01/11/20 History [Polyethylene Glycol 3350] bupropion HCl 100 mg tablet 100 mg PO BID #180 tab 10/18/19 01/11/20 Rx lamotrigine 100 mg tablet 100 mg PO BID #180 tab 10/18/19 01/11/20 Rx quetiapine 100 mg tablet 100 mg PO BID #180 tab 10/18/19 01/11/20 Rx Cyclobenzaprine HCl 10 mg PO TID 01/11/20 01/11/20 History [Cyclobenzaprine 10mg Tab] Gabapentin [Gabapentin 300mg Cap] 300 mg PO TID 01/11/20 01/11/20 History Oxycodone HCl [Oxycodone (IR) 5mg 5 mg PO Q6 01/11/20 01/11/20 History Cap] Sennosides/Docusate Sodium 1 each PO DAILY 01/11/20 01/11/20 History [Senexon-S 50-8.6 mg Tablet] diazePAM [Valium] 5 mg PO TID 01/11/20 01/11/20 History Allergies Allergy/AdvReac Type Severity Reaction Status Date / Time No Known Allergies Allergy Verified 10/18/19 12:54 Exam Vital signs and Labs for Last 24 Hours: Temp Pulse Resp BP Pulse Ox 98.3 F 100 H 17 131/78 96 08/07/20 07:52 01/12/20 07:52 01/12/20 07:52 01/12/20 07:52 01/12/20 07:52 Laboratory Results - last 24 hr 01/11/20 10:41: WBC 10.3, RBC 2.44 L, Hgb 9.0 L, Hct 27.2 L, MCV 111.1 H, MCH 36.9 H, MCHC 33.2, RDW 15.2, Plt Count 602 H, MPV 8.0, Neut % (Auto) 85.2 H, Lymph % (Auto) 9.1 L, [place] % (Auto) 3.6, Eos % (Auto) 1.6, Baso % (Auto) 0.5, Neut # (Auto) 8.8 H, Lymph # (Auto) 0.9, [place] # (Auto) 0.4, Eos # (Auto) 0.2, Baso # (Auto) 0.1, Total Counted 100, Neutrophils % (Manual) 92 H, Lymphocytes % (Manual) 4 L, Monocytes % (Manual) 3, Eosinophils % (Manual) 1, Platelet Estimate Moderate increase, Hypochromasia 1+, Poikilocytosis 2+, Anisocytosis 2+, Macrocytosis 2+ 01/11/20 10:41: Sodium 139, Potassium 2.8 L*, Chloride 97 L, Carbon Dioxide 36 H, Anion Gap 8.8, BUN 5 L, Creatinine 0.60, Estimated Creat Clear 112, Estimated GFR 107, Est GFR ( Amer) 130, Glucose 104 H, Calcium 8.8, Total Bilirubin 0.4, AST 30, ALT 48, Alkaline Phosphatase 93, Total Protein 6.2 L, Albumin 2.9 L, Globulin 3.3 H, Albumin/Globulin Ratio 0.9 L 01/11/20 11:30: Urine Color Yellow, Urine Appearance Clear, Urine pH 7.5, Ur Specific [place] 1.015, Urine Protein Negative, Urine Glucose (UA) Negative, Urine Ketones Negative, Urine Blood Negative, Urine Nitrate Negative, Urine Bilirubin Negative, Urine Urobilinogen 1.0, Ur Leukocyte Esterase Negative, Urine WBC 3-5, Ur Squamous Epith Cells Occasional 01/11/20 11:30: Urine Opiates Screen Positive H, Urine Methadone Screen Negative, Ur Barbituates Screen Negative, Ur Phencyclidine Scrn Negative, Ur Amphetamines Screen Negative, U Benzodiazepines Scrn Positive H, Urine Cocaine Screen Negative, U Marijuana (THC) Screen Positive H 01/11/20 15:30: Chlamy pneumoniae PCR Not detected, Adenovirus (PCR) Not detected, B. pertussis DNA (PCR) Not detected, Coronavirus OC43 (PCR) Not detected, Coronavirus HKU1 (PCR) Not detected, Coronavirus 229E (PCR) Not detected, COVID-19 PCR Not detected, C
[2020-01-12 09:27] VITALS: O2SAT 96
--- NOTE | 2020-01-12 11:33 | SW/DCPLANNER ---
Addendum entered by Sussy Coon 01/12/20 13:34: Sonia from [facility] has called to confirm patient information has been received and services will begin once approval from [facility] for this patient. Patient will discharge home today. Addendum entered by Sussy Coon 01/12/20 13:07: I did speak with patients daughter regarding discharge plans. Daughter at first requested [facility] for patient. I explained to daughter that patient would not be a candidate for [facility]. Daughter then stated that her and her sister will take this patient home. Daughter is agreeable to home health services at this time and prefer [facility]. Patient information has been faxed to [facility]. Daughter stated that patient has all DME at home. Dr Bush will discharge this patient home today. Daughter concurs with this plan and have stated to contact her ([place]) at time of discharge and she will transport this patient home. Original Note: I have attempted to speak with this patient this morning. However patient was in asleep and unable to communicate at this time. I have attempted to contact patients daughter with no answer. I did leave daughter a voicemail to call me to discuss discharge plans. I will discuss discharge plans with daughter regarding DME and services at home.
--- NOTE | 2020-01-12 12:45 | HMH.HPDC ---
General - General Admission date:: 01/11/20 Discharge date: 01/12/20 *Admission Date: 01/11/20 *History of present illness: MR Comment: This is a 49-year-old female brought in by her daughter with complaints that she fell last night and hurt her back; she recently had back surgery at , has also been confused and hallucinating, there is also history of pills missing from bottles this includes Valium and hydrocodone as well as gabapentin, and initially appeared to be overdosed, was quite alert and seen yawning after she was given Narcan. Patient's work-up shows normal no acute findings in CTs of the lumbar spine and thoracic spine, urine drug screen is positive for THC opiates and benzodiazepines. Given IV fluids Toradol as well as Solu-Medrol and is low at 2.8 potassium; Spoke to [facility] and they do not have beds and also advised that patient seems to be neurologically stable and can be admitted locally for pain control spoke to Dr. Merritt and he has accepted patient This is a 49-year-old female brought in by her daughter with complaints that she fell last night and hurt her back; she recently had back surgery at , has also been confused and hallucinating, there is also history of pills missing from bottles this includes Valium and hydrocodone as well as gabapentin, and initially appeared to be overdosed, was quite alert and seen yawning after she was given Narcan This was her ER course. [facility] History Medical History: Reports:: Anxiety, Depression Denies:: Asthma, Cancer, Diabetes Mellitus Type 1, Diabetes Mellitus Type 2, Hyperlipidemia, Hypertension, MRSA, Seizures *Have you ever received a pneumonia vaccine?: No *Have you received a flu vaccine this season?: No Other Medical History: Reports: Arthritis, Sinus Problems. Denies: Blood Transfusion Reaction Other Surgeries: Yes: Amputation: No Fractures: No - *Social History Last grade of school completed: GED Smoking Status: Current every day smoker Tobacco Type: cigarettes # Packs/Day (cigarettes): 1 Alcohol Intake: never Alcohol Intake Frequency:: a few times a week Substance Use Type: marijuana *Occupational Status:: unemployed, disabled Housing: house *Travel in the last 8 weeks: None - Psychiatric History Pschychiatric History:: Reports:: Anxiety, Depression Family Hx:: Cancer, Diabetes, Hyperlipidemia, Hypertension, Alcoholism Review of Systems - Constitutional Reports daytime sleepiness, Reports fatigue, Reports weakness - Eyes Denies loss of vision - ENT Reports poor balance, Denies abnormal hearing, Denies nasal trauma - *Cardiovascular Denies chest pain, Denies generalized swelling - *Respiratory Denies chest congestion, Denies shortness of breath - *Gastrointestinal Denies abdominal pain, Denies change in stools - *Genitourinary Denies difficulty urinating - *Musculoskeletal Reports limited joint movement, Reports muscle cramps, Reports numbness, Reports radiating pain into limb, Reports stiffness - Integumentary/Breasts Denies lesions, Denies rash - *Neurologic Reports abnormal walking, Reports behavioral changes, Reports confusion, Reports unsteadiness, Reports memory loss, Reports dizziness, Reports weakness, Denies abnormal hearing, Denies seizure-like activity, Denies tremor(s) - Psychiatric Reports behavioral changes - Endocrine Denies excessive sweating - Hematologic/Lymphatic Denies easy bleeding - Allergic/Immunologic Denies lip swelling Exam Vital signs and Labs for Last 24 Hours: Temp Pulse Resp BP Pulse Ox 98.3 F 100 H 17 131/78 96 01/12/20 07:52 01/12/20 07:52 01/12/20 07:52 01/12/20 07:52 01/12/20 09:27 Laboratory Results - last 24 hr 01/11/20 15:30: Chlamy pneumoniae PCR Not detected, Adenovirus (PCR) Not detected, B. pertussis DNA (PCR) Not detected, Coronavirus OC43 (PCR) Not detected, Coronavirus HKU1 (PCR) Not detected, Coronavirus 229E (PCR) Not d
--- NOTE | 2020-01-12 15:38 | PC.NURSE ---
HOME MEDICATIONS; GABAPENTIN, OXYCODONE, AND DIAZEPAM COUNTED AND SIGNED OFF WITH Deo MURILLO AND PT AND GIVEN TO PT'S DAUGHTER AT DISCHARGE
== END 2020-01-12 15:40 | disposition home or self-care (01) ==
LOC: ER 15:40 → 2ND 15:59
PROVIDERS: Admitting Provider Family Medicine; Emergency Provider Emergency Medicine; PCP Emergency Medicine; Visit Provider Family Medicine
DX: T42.4X1A Poisoning by benzodiazepines, accidental (unintentional), initial encounter (principal); T40.2X1A Poisoning by other opioids, accidental (unintentional), initial encounter; T42.6X1A Poisoning by other antiepileptic and sedative-hypnotic drugs, accidental (unintentional), initial encounter; R41.0 Disorientation, unspecified; M54.9 Dorsalgia, unspecified; Z72.0 Tobacco use; Z91.81 History of falling
CPT/HCPCS: 36415; 70450; 72128; 72131; 80048; 80053; 80305; 81001; 85007; 85025; 87581; 87633; 87798; 96365; 96375; 96376; 99285; G0378; J2310; J2405

== ENCOUNTER 2020-02-12 09:23 | Emergency (ER) | payer MEDICARE, BC, SELFPAY ==
[2020-02-12 09:37] VITALS: BP 148/104; PULSE 65; RESP 18; TEMP 36.8; O2SAT 100; BMI 27.2
[2020-02-12 10:48] VITALS: BP 139/76; PULSE 86; RESP 18; O2SAT 98
--- NOTE | 2020-02-12 10:57 | HMH.EDWNDL ---
ED Disposition Clinical Impression: Wound dehiscence Disposition: Home, Self-Care Condition on Discharge: Fair Instructions: DI for Laceration Repair Referrals: Braden Kerns MD [Primary Care Provider] - - Critical Care Critical Care Time: No Attestation: On 02/12/20, the high probability of a clinically significant, sudden or life threatening deterioration of the following system(s) required my full and direct attention, intervention and personal management. The time I documented below is in addition to time spent performing reported procedures but includes the following listed in this critical care notation. Medical Decision Making - Medical Records Medical records reviewed: Yes: I reviewed the patient's medical records. - Rey Inquiry Pt receiving controlled substance: No Vital Signs: 02/12/20 09:37 02/12/20 10:48 Temperature 98.2 F Temperature Source Oral Pulse Rate [Radial] 65 86 Respiratory Rate 18 18 Blood Pressure [Right Arm] 148/104 H 139/76 Blood Pressure Mean [Right Arm] 118 97 Blood Pressure Source [Right Arm] Automatic Cuff Automatic Cuff Blood Pressure Position [Right Arm] Sitting Sitting 02 Sat by Pulse Oximetry 100 98 Oxygen Delivery Method Room Air Orders (Tests/Meds): ED MEDICATIONS Discontinued Medications Generic Name Dose Route Start Last Admin Trade Name Freq PRN Reason Stop Dose Admin Lidocaine HCl 10 ml 02/12/20 09:49 Lidocaine 1% 10ml Mdv SQ 02/12/20 09:50 ONCE ONE - Reevaluation(s) Time: 11:01 Reevaluation #1: On reevaluation, patient tolerated procedure well. We did thoroughly irrigate the wound and placed dissolvable sutures. She needs to follow-up with her surgeon immediately in the morning for repeat wound assessment. She is to continue her normal outpatient antibiotics. Given strict return precautions. Verbalized understanding. Medical Decision Narrative: This is a 49-year-old female presented to the emergency department with wound dehiscence. The patient had her surgery done at [facility]. I did attempt to contact the physician who performed the surgery, however they were unavailable given the holiday. Given the large nature of the gaping wound, I do believe she will require primary closure to prevent any further infection. Wound/Laceration HPI - General Chief Complaint: Wound/Laceration Stated Complaint: back surgery 3wks right side opening Time Seen by Provider: 02/12/20 09:40 Mode of Arrival: Ambulatory Limitations: No Limitations Description of Symptoms (Recalled from ER Triage Doc. by RN): Recently had backsurgery three weeks ago and her incision on the right side has popped open states they put her on antibiotic for infection and it is not working. - History of Present Illness HPI narrative: 49-year-old female presented to the emergency department with a wound on her right side. The patient had back surgery 3 weeks ago. This was done at [facility]. She states that she has been on an antibiotic for wound infection, however it is not helping. She states that 3 days ago the wound popped open. She does not have any significant pain in the site, however she states that it is very gaping. She denies any fevers or chills. No rash. No discharge. No chest pain or shortness of breath. No abdominal pain or vomiting. - Related Data Home Medications Medication Instructions Recorded Confirmed polyethylene glycoL 3350 17 g PO DAILY 02/10/19 01/16/20 [Polyethylene Glycol 3350] Oxycodone HCl [Oxycodone (IR) 5mg 5 mg PO Q6HP PRN 01/11/20 01/16/20 Cap] Sennosides/Docusate Sodium 1 each PO DAILY 01/11/20 01/16/20 [Senexon-S 50-8.6 mg Tablet] Ibuprofen/Famotidine [Duexis 1 tab PO TID 01/12/20 01/16/20 800-26.6 mg Tablet] cyclobenzaprine 5 mg tablet 5 mg PO TIDP PRN 01/16/20 01/16/20 Previous Rx's Medication Instructions Recorded bupropion HCl 100 mg tablet See Rx Instruc
--- NOTE | 2020-02-12 11:02 | PC.NURSE ---
Cleaned wound with NS. Apply non stick pads and covered with a tegaderm.
[2020-02-12 11:05] VITALS: BP 139/76; PULSE 86; RESP 18; TEMP 36.8; O2SAT 98
== END 2020-02-12 11:07 | disposition home or self-care (01) ==
PROVIDERS: Emergency Provider Emergency Medicine; PCP Emergency Medicine
DX: T81.30XA Disruption of wound, unspecified, initial encounter (principal); F41.8 Other specified anxiety disorders; F17.210 Nicotine dependence, cigarettes, uncomplicated
CPT/HCPCS: 12020; 99282

== ENCOUNTER → 2020-08-07 09:25 | Outpatient (CLI) | payer MEDICARE, BC, SELFPAY ==
--- NOTE | 2020-08-07 09:34 | XR_ITS ---
PROCEDURE: XR HAND LT MIN 3V CLINICAL INDICATION: left hand pain COMPARISON: No exams were available for comparison FINDINGS: No fracture or dislocation. No lytic or blastic change. There is mild juxta-articular osteoporosis of the MP joints and PIP joints of the fingers which could be an early finding of rheumatoid arthritis. There are no erosive lesions. The soft tissues are normal. IMPRESSION: Subtle findings suggesting possible early rheumatoid arthritis, no other significant abnormality noted Dictated by: Dr. Herman Fitzgerald MD 08/07/2020 10:52 Dr. Herman Fitzgerald MD in [place] 08/07/2020 10:52
== END ==
PROVIDERS: PCP Emergency Medicine; Visit Provider Orthopaedic Surgery
DX: M79.642 Pain in left hand (principal)
CPT/HCPCS: 73130

== ENCOUNTER 2020-08-07 10:48 | Outpatient (RCR) | payer MEDICARE, BC, SELFPAY | END 2020-08-07 11:20 | disposition home or self-care (01) | LOC: OT 10:48 | PROVIDERS: Visit Provider Orthopaedic Surgery | DX: G56.03 Carpal tunnel syndrome, bilateral upper limbs (principal) | CPT/HCPCS: 97763 ==

== ENCOUNTER → 2020-10-21 13:29 | Outpatient (CLI) | payer MEDICARE, SELFPAY ==
--- NOTE | 2020-10-21 13:50 | XR_ITS ---
PROCEDURE: XR WRIST RT MIN 3V CLINICAL INDICATION: right wrist pain; surgery CTR COMPARISON: No exams were available for comparison FINDINGS: No fracture or dislocation. No lytic or blastic change. There is normal mineralization. The joint spaces are well-preserved. No significant degenerative/arthritic changes. No erosive changes evident. Other findings:There is some deformity noted at the distal aspect of the 5th metacarpal. Suspect old injury. IMPRESSION: No acute findings. Dictated by: Andrae Tsang MD 10/21/2020 15:32 Andrae Tsang MD in [place] 10/21/2020 15:32
--- NOTE | 2020-10-21 13:50 | XR_ITS ---
PROCEDURE: XR CHEST 2V CLINICAL HISTORY: surgery 10/24/20; smoker Current smoker COMPARISON: CT [facility]WO CT CHEST W/O CONTRAST from 10/22/2015 CR [id number] XR ribs LT min 3V w CXR1V from 10/05/2018 FINDINGS: Slight increase in prominence of the right hilum. Normal heart size. Patchy density is present in the lingula and along the left major fissure inferiorly Prior thoracolumbar surgery with inter pedicular screws and connecting rods with mild right-sided thoracic scoliosis. No acute bony abnormalities. IMPRESSION: Slight increased prominence of the right hilum. While this could be vascular in nature, 1 cannot exclude the possibility of a hilar mass. Chest CT with contrast may provide further evaluation. Thickening of the right major fissure inferiorly with patchy infiltrate within the lingula Dictated by: Andrae Tsang MD 10/21/2020 15:28 Andrae Tsang MD in [place] 10/21/2020 15:28
[2020-10-21 14:15] LABS: Basophils # 0.1 K/mm3 (0-0.2); Basophils % 0.7 % (0.1-2.0); Eosinophils # 0.1 K/mm3 (0.0-0.4); Eosinophils % 1.6 % (0.1-12.0); Hematocrit 44.1 % (37.0-47.0); Lymphocytes # 1.4 K/mm3 (0.7-4.5); Lymphocytes % 17.2 % (10-50); Mean Corpuscular HGB Conc 31.7 g/dL (31.8-35.4); Mean Corpuscular Hemoglobin 33.6 pg (27.0-31.2); Mean Corpuscular Volume 106.1 fl (81-99); Monocytes # 0.3 K/mm3 (0.1-1.0); Monocytes % 3.6 % (1.7-9.3); Neutrophils # 6.3 K/mm3 (1.8-7.8); Platelet Count 338 K/mm3 (142-424); Red Blood Count 4.16 M/mm3 (4.20-5.40); Red Cell Distribution Width 13.2 % (11.5-17.5); White Blood Count 8.2 K/mm3 (4.8-10.8)
[2020-10-21 14:31] LABS: Anion Gap 6.4 mEq/L (5-15); Blood Urea Nitrogen 10 mg/dl (7-17); Calcium 8.9 mg/dl (8.4-10.2); Carbon Dioxide 26 mmol/L (22.0-30.0); Chloride 110 mmol/L (98-107); Estimated Glomerular Filt Rate 77 ml/min (>60); GFR (African American) 93 ML/MIN (>60); Glucose 133 mg/dl (74-100); Potassium 3.4 mmoL/L (3.5-5.1); Sodium 139 mmol/L (136-145)
== END ==
PROVIDERS: Visit Provider Orthopaedic Surgery
DX: Z01.818 Encounter for other preprocedural examination (principal); G56.03 Carpal tunnel syndrome, bilateral upper limbs; Z20.822 Contact with and (suspected) exposure to COVID-19
CPT/HCPCS: 36415; 71046; 73110; 80048; 85025; U0003

== ENCOUNTER → 2020-10-30 14:14 | Outpatient (CLI) | payer MEDICARE, BC, SELFPAY | PROVIDERS: Visit Provider Orthopaedic Surgery | DX: Z01.812 Encounter for preprocedural laboratory examination (principal); Z11.52 Encounter for screening for COVID-19; G56.01 Carpal tunnel syndrome, right upper limb | CPT/HCPCS: U0003 ==

== ENCOUNTER 2020-11-01 09:53 | Day surgery (SDC) | payer MEDICARE, BC, SELFPAY ==
[2020-10-29 13:56] VITALS: BMI 27.8
[2020-11-01] VITALS (9 sets, daily range): BP systolic 93–135; BP diastolic 59–74; PULSE 79–93; RESP 16–18; TEMP 36.1–36.7; O2SAT 94–98
--- NOTE | 2020-11-01 10:49 | P.PN_ITS ---
[facility] Anesthesia Checklist - Patient Identification Patient Identification: Arm Band - Structural Data Admitted From: Home Planned Operative Procedure/s: Carpal tunnel release Consent for Planned Operative Procedure(s) Verified: Yes - NPO Status Verified Time NPO: 00:00 - Additional verifications Anesthesia Reactions: No Hx Blood Transfusions: No Blood Transfusion Reaction: No - Airway Assessment C-Spine Mobility Assessed: Yes TMJ Mobility Assessed: Yes Dentition: Poor Dentition (Loose) - Neurological Assessment Level of Consciousness: Awake Hx Seizures: No Numbness or tingling in extremities: No - Anesthesia Plan Anesthesia Risk discussed: Yes Anesthesia Plan: Verified ASA Class: II Anesthesia Type: Local & MAC [facility] History I have reviewed the patient's past medical history: Yes Medical History: Reports:: Anxiety, Depression Denies:: Asthma, Cancer, Diabetes Mellitus Type 1, Diabetes Mellitus Type 2, Hyperlipidemia, Hypertension, MRSA, Seizures *Have you ever received a pneumonia vaccine?: No *Have you received a flu vaccine this season?: No Other Medical History: Reports: Arthritis, Sinus Problems. Denies: Blood Transfusion Reaction Anesthesia experience/problems:: None Other Surgeries: Yes: , Other (back surgery) Amputation: No Fractures: No - *Social History Smoking Status: Current every day smoker Tobacco Type: cigarettes # Packs/Day (cigarettes): 1 Alcohol Intake: never Alcohol Intake Frequency:: a few times a week Substance Use Type: marijuana *Occupational Status:: disabled Housing: house Household Members: family *Travel in the last 8 weeks: None - Psychiatric History Pschychiatric History:: Reports:: Anxiety, Depression Family Hx:: Cancer, Diabetes, Hyperlipidemia, Hypertension, Alcoholism
[2020-11-01 10:56] LABS: Urine Pregnancy, HCG Qual. Negative (Negative)
--- NOTE | 2020-11-01 13:09 | HMH.ANESI ---
[facility] Anesthesia Record Part I Intake, IV Amount: 200 Estimated blood loss (mL): 0 Urine output (mL): 0 Blood Pressure: 93/59 SaO2: 96 Pulse Rate: 93 Respiratory Rate: 18 Temperature: 98.1 F Patient is:: Awake Stable to PACU at:: 13:05
--- NOTE | 2020-11-01 22:09 | HMH.OPNOTE ---
Date of procedure: 11/01/20 Pre-op Diagnosis:: Carpal tunnel syndrome, right Post-op Diagnosis:: Same Procedure performed:: Open carpal tunnel release, right Surgeon:: Ady Lin MD PEANUT BUTTER MAKER:: Other (Gladys Diehl) Anesthesia: LMA Estimated blood loss (mL): 2 Clinical Note:: Patient is a 50-year-old female with bilateral carpal tunnel syndrome with long-standing symptoms. Previously EMG/NCV studies confirmed carpal tunnel syndrome on both sides. Patient is having significant and disabling symptoms and has failed to respond adequately to conservative management. Therefore, carpal tunnel release surgery is necessary to relieve symptoms, preserve the remaining fibers of the median nerve, improve function and decrease the pain, paresthesias and weakness and to prevent permanent nerve damage. Please refer to my office note for full details. Operative findings:: The intraoperative findings showed the median nerve to be very tightly compressed and hyperemic. The flexor retinaculum was noted to be thick and tight. There was mild synovitis in the carpal tunnel. There was no evidence of any space-occupying lesions within the carpal tunnel. Operative note:: On the day of the surgery the patient was met in the preoperative area. Patient was positively identified and the operative site was marked and initialed by me. A physical examination was performed and the chart was updated. I again discussed the procedure, risks and benefits and alternatives with the patient. The complications discussed include but are not limited to- bleeding, injury to nerves, blood vessels and tendons, infection, wound dehiscence, incomplete relief/continued pain, persistent numbness, palmar hypersensitivity, pillar pain, DVT/PE, complex regional pain syndrome(CRPS), worsening of nerve damage, failure of the condition to improve, incomplete return of function, bowstringing of tendons, weakness of debt management counselor strength, recurrence, failure of the surgery to accomplish the desired goals, decreased use of the hand, loss of use of the arm, loss of the hand or arm, loss of life. Likely need for further surgery in the future has been discussed. I've indicated to the patient where the proposed incision would be made and also discussed the possibility of extending the incision if needed to accomplish an effective release. We have discussed how the goal of surgery is to protect the fibers which have remained healthy and hopefully reverse the symptoms of the fibers which are compromised but still recoverable. We have explained that, fibers that are permanently damaged will not recover. Patient asked appropriate questions and all have been answered by me. Patient wished to proceed with the surgery. Patient understood the risks, agreed to proceed with surgery, and no guarantees or assurances were given or implied. The patient was brought to the operating room and placed supine on the operating table. The right upper extremity was placed over a side table. All the bony prominences were well-padded. The patient had a general anesthesia administered by the wine cellar worker. A well-padded tourniquet cuff was placed over the upper arm. The right upper extremity was prepped and draped in the usual sterile fashion. A preprocedure timeout was performed as per hospital policy. Administration of prophylactic antibiotics was confirmed with the wine cellar worker. The skin incision was marked using the Lockhart's landmarks, just ulnar to the thenar crease. The limb was exsanguinated with the Esmarch bandage and tourniquet was inflated to 250 mmHg. Please see nursing records for the total tourniquet time. Lockhart's landmarks were utilized and a skin incision was made parallel and just ulnar to the thenar crease with a 15 blade. Blunt tissue dissection was carried through the subcutaneous tissue down to the palmar fascia. The palmar fascia was incised with the knife to reveal the transverse carpal ligament. The transverse carpal ligament was
== END 2020-11-01 14:07 | disposition home or self-care (01) ==
LOC: OR 09:54
PROVIDERS: PCP Emergency Medicine; Visit Provider Orthopaedic Surgery
PROC: (CPT 64721; principal; 2020-11-01 11:15)
DX: G56.01 Carpal tunnel syndrome, right upper limb (principal)
CPT/HCPCS: 64721; 81025; 96374; J2704

== ENCOUNTER → 2020-11-12 13:55 | Outpatient (CLI) | payer MEDICARE, BC, SELFPAY | PROVIDERS: Visit Provider Orthopaedic Surgery | DX: G56.01 Carpal tunnel syndrome, right upper limb (principal) | CPT/HCPCS: 87070; 87077; 87186; 87205 ==

== ENCOUNTER → 2020-11-15 10:12 | Outpatient (CLI) | payer MEDICARE, BC, SELFPAY ==
--- NOTE | 2020-11-15 10:12 | CT_ITS ---
PROCEDURE: CT CHEST W CON CLINCAL INDICATION: increased prominence of the right hilum, r/o mass Smoker, abnormal chest x-ray COMPARISON: CT [facility]WO CT CHEST W/O CONTRAST from 10/22/2015 CR XR CHEST 2V from 10/21/2020 TECHNIQUE: IV Contrast: 75ml Isovue 370 Axial images obtained with sagittal and coronal reformats. All CT scans at the facility use one or more dose reduction, viz: automated exposure control, ma/kV adjustment per patient size (including targeted exams where dose is matched to indication, i.e. head), or iterative reconstruction technique. FINDINGS: HEART AND MEDIASTINAL STRUCTURES: 1 cm right thyroid nodule along the lower pole. There are scattered small mediastinal lymph nodes slightly more prominent from the older exam. There are small bilateral hilar lymph nodes not significantly changed. No hilar mass is evident. LUNGS AND PLEURAL SPACES: Mild atelectatic change or scarring within the lingula. Calcified nodules present in the left lung base posteriorly. BONY STRUCTURES: No acute bony abnormalities apparent. UPPER ABDOMEN: 1.4 cm hypodensity left hepatic lobe just lateral to the falciform ligament and may be due to focal fatty infiltration. Follow-up may confirm. ADDITIONAL FINDINGS: Postsurgical changes of the thoracic spine with upper thoracic curvature convex left and lower thoracic curvature convex right with pedicular this inter pedicular screws and connecting rods in the lower thoracic spine. IMPRESSION: No acute finding. There are some scattered small mediastinal lymph nodes slightly more prominent than when compared to the previous exam of questionable clinical significance. No hilar mass evident. Other nonacute findings as described above. Dictated by: Andrae Tsang MD 11/15/2020 12:10 Andrae Tsang MD in [place] 11/15/2020 12:10
== END ==
PROVIDERS: PCP Emergency Medicine; Visit Provider Emergency Medicine
DX: R93.89 Abnormal findings on diagnostic imaging of other specified body structures (principal)
CPT/HCPCS: 71260; Q9967

== ENCOUNTER 2020-12-05 13:00 | Outpatient (RCR) | payer MEDICARE, BC, SELFPAY ==
--- NOTE | 2020-11-18 15:46 | HMH.PTOPWND ---
Rehab Outpt Wound Evaluation Rehab OP Wound Evaluation Start: 11/18/20 15:19 Freq: Status: Active Protocol: Document 11/18/20 15:19 [email or web address] (Rec: 11/18/20 15:46 [email or web address] [id number]) Electronically Signed By Danyel Berumen PT 11/18/20 15:19 Subjective/History History History This is the initial wound evaluation for Tameka Gibson. Pt is a 50 y/o female referred to PT wound clinic for non-healing surgical incision on R wrist. Pt reports she had R carpal tunnel release ~ 3 weeks ago. Pt reports she does not know how her stitches got wet or popped but now has open incision on R wrist. Subjective Subjective Pt reports tenderness Wound Eval Wound Right Volar Wrist Wound Type Incision Is This a Chronic Wound Yes Wound Length (cm) 3.0 Wound Width (cm) 0.5 Wound Depth (cm) 0.5 Wound Bed Appearance Slough Percentage Granulated (%) 0 Percentage of Slough (%) 100 Percentage of Eschar (Yellow) (%) 100 Wound Margins Description Well Defined Surrounding Tissue Temperature Warm Drainage Description Serosanguineous Drainage Amount Scant Drainage Odor No Odor Dressing Status Soiled Wound Topical Solution/Irrigant Antibiotic Irrigant Primary Dressing Silver Dressing Comment tegederm AG mesh Wound Secondary Dressing Type Steri Strips,Absorbant Pad Wound Debridement Method Mechanical Wound Debridement Amount of Tissue None Removed Wound Debridement Result Patient Unable to Tolerate Wound Problems/Impairments Impairments Problems/Impairmments Wound Care Needs,Subjective C/ O Pain Prognosis Rehab Potential Fair Clinical Impression Consistent with Diagnosis Yes Short Term Goals Number of Weeks 4 Decrease Wound Area Yes: 25 Increase Red Granulation Tissue % Yes: 50 Custodial Goals Number of Weeks 8 Decrease Wound Area Yes: 50 Increase Red Granulation Tissue % Yes: 100 Outpatient Therapy Plan of Care Treatment Plan May Include Therapeutic Exercise Including Home Yes Exercise Program Manual Therapy Techniques Yes Wound Care Yes Eval/Re-Eval Yes Frequency Times per week
== END 2020-12-05 13:05 | disposition home or self-care (01) ==
LOC: PT 13:00
PROVIDERS: PCP Emergency Medicine; Visit Provider Orthopaedic Surgery
DX: G56.01 Carpal tunnel syndrome, right upper limb (principal)
CPT/HCPCS: 97161; 97597

== ENCOUNTER → 2021-04-23 13:59 | Outpatient (CLI) | payer MEDICARE, BC, SELFPAY ==
[2021-04-23 14:37] LABS: Urine Pregnancy, HCG Qual. Negative (Negative)
[2021-04-23 15:04] LABS: Basophils # 0.1 K/mm3 (0-0.2); Basophils % 0.7 % (0.1-2.0); Eosinophils # 0.2 K/mm3 (0.0-0.4); Eosinophils % 2.8 % (0.1-12.0); Hematocrit 37.9 % (37.0-47.0); Hemoglobin 12.9 g/dL (12.2-16.2); Lymphocytes # 2.5 K/mm3 (0.7-4.5); Lymphocytes % 35.3 % (10-50); Mean Corpuscular HGB Conc 33.9 g/dL (31.8-35.4); Mean Corpuscular Hemoglobin 36.1 pg (27.0-31.2); Mean Corpuscular Volume 106.5 fl (81-99); Mean Platelet Volume 8.3 fl (7.4-10.4); Monocytes # 0.4 K/mm3 (0.1-1.0); Monocytes % 5.6 % (1.7-9.3); Neutrophils % 55.6 % (37.0-80.0); Platelet Count 313 K/mm3 (142-424); Red Blood Count 3.56 M/mm3 (4.20-5.40); Red Cell Distribution Width 13.6 % (11.5-17.5); White Blood Count 7.1 K/mm3 (4.8-10.8)
[2021-04-23 15:48] LABS: Alanine Aminotransferase 15 U/L (12-78); Albumin Level 3.9 g/dl (3.5-5.0); Albumin/Globulin Ratio 1.6 (1.1-1.8); Alkaline Phosphatase 78 U/L (38-126); Anion Gap 9.2 mEq/L (5-15); Aspartate Amino Transferase 23 U/L (14-36); Bilirubin,Total 0.3 mg/dl (0.2-1.3); Blood Urea Nitrogen 17 mg/dl (7-17); Calcium 8.5 mg/dl (8.4-10.2); Carbon Dioxide 29 mmol/L (22.0-30.0); Chloride 104 mmol/L (98-107); Estimated Glomerular Filt Rate 77 ml/min (>60); GFR (African American) 93 ML/MIN (>60); Globulin 2.5 g/dL (1.3-3.2); Glucose 82 mg/dl (74-100); Potassium 4.2 mmoL/L (3.5-5.1); Sodium 138 mmol/L (136-145); Total Protein,Serum 6.4 g/dl (6.3-8.2)
== END ==
PROVIDERS: Visit Provider Orthopaedic Surgery
DX: Z01.818 Encounter for other preprocedural examination (principal); Z11.52 Encounter for screening for COVID-19; G56.02 Carpal tunnel syndrome, left upper limb
CPT/HCPCS: 36415; 80053; 81025; 85025; C9803; U0003; U0005

== ENCOUNTER 2021-04-24 08:19 | Day surgery (SDC) | payer MEDICARE, BC, SELFPAY ==
[2021-04-22 09:56] VITALS: BMI 27.2
--- NOTE | 2021-04-24 08:17 | P.PN_ITS ---
[facility] Anesthesia Checklist - Patient Identification Patient Identification: Arm Band - Structural Data Admitted From: Home Planned Operative Procedure/s: Carpal tunnel release Consent for Planned Operative Procedure(s) Verified: Yes - NPO Status Verified Time NPO: 00:00 - Additional verifications Anesthesia Reactions: No Hx Blood Transfusions: No Blood Transfusion Reaction: No - Airway Assessment C-Spine Mobility Assessed: Yes TMJ Mobility Assessed: Yes Dentition: Poor Dentition - Neurological Assessment Level of Consciousness: Awake Hx Seizures: No Numbness or tingling in extremities: Yes - Anesthesia Plan Anesthesia Risk discussed: Yes Anesthesia Plan: Verified ASA Class: II Anesthesia Type: Local & MAC [facility] History I have reviewed the patient's past medical history: Yes Medical History: Reports:: Anxiety, Depression Denies:: Asthma, Cancer, Diabetes Mellitus Type 1, Diabetes Mellitus Type 2, Hyperlipidemia, Hypertension, Internal Pacemaker, MRSA, Seizures *Have you ever received a pneumonia vaccine?: No *Have you received a flu vaccine this season?: No Other Medical History: Reports: Arthritis, Sinus Problems. Denies: Blood Transfusion Reaction Anesthesia experience/problems:: None Laterality Cases: Right: Carpal Tunnel Release Other Surgeries: Yes: , Other. No: Pacemaker Amputation: No Fractures: No - *Social History Last grade of school completed: High school graduate Smoking Status: Current every day smoker Tobacco Type: cigarettes # Packs/Day (cigarettes): 1 Alcohol Intake: current Alcohol Intake Frequency:: a few times a week Substance Use Type: marijuana Last Used Substance: days (ago) *Occupational Status:: disabled Housing: house Household Members: family *Travel in the last 8 weeks: None - Psychiatric History Pschychiatric History:: Reports:: Anxiety, Depression Family Hx:: Cancer, Alcoholism, Mental illness
[2021-04-24 08:35] VITALS: BP 126/82; PULSE 77; RESP 18; TEMP 36.2; O2SAT 95
[2021-04-24 10:49] VITALS: BP 117/75; PULSE 82; RESP 16; TEMP 36.1; O2SAT 100
[2021-04-24 11:04] VITALS: BP 146/82; PULSE 93; RESP 16; TEMP 36.1; O2SAT 95
[2021-04-24 11:19] VITALS: BP 139/80; PULSE 84; RESP 18; TEMP 36.1; O2SAT 93
[2021-04-24 11:44] VITALS: BP 130/67; PULSE 71; RESP 18; TEMP 36.1; O2SAT 98
--- NOTE | 2021-04-24 21:54 | HMH.OPNOTE ---
Date of procedure: 04/24/21 Pre-op Diagnosis:: Carpal tunnel syndrome, left Post-op Diagnosis:: Same Procedure performed:: Open carpal tunnel release, left wrist Surgeon:: Ady Lin MD Web Content Specialist(s):: Nasima Thomas PA-C PUFF IRONER:: Gladys Diehl Anesthesia: MAC, local Estimated blood loss (mL): 2 Clinical Note:: Patient is a 50-year-old female with left carpal tunnel syndrome with long-standing symptoms. The clinical findings are consistent with the diagnosis of carpal tunnel syndrome. Previously [EMG/NCV studies confirmed carpal tunnel syndrome on both sides and she previously underwent successful carpal tunnel release on the right side. Patient is having significant and disabling symptoms on the left side and has failed to respond adequately to conservative management.] Therefore, carpal tunnel release surgery is necessary to relieve symptoms, preserve the remaining fibers of the median nerve, improve function and decrease the pain, paresthesias and weakness and to prevent permanent nerve damage. Please refer to my office note for full details. Operative findings:: The intraoperative findings showed the median nerve to be tightly compressed and hyperemic. The flexor retinaculum was noted to be thick and tight. There was mild synovitis in the carpal tunnel. There was no evidence of any space-occupying lesions within the carpal tunnel. Operative note:: On the day of the surgery the patient was met in the preoperative area. Patient was positively identified and the operative site was marked and initialed by me. A physical examination was performed and the chart was updated. I have again discussed the procedure, risks, benefits and alternatives with the patient. The complications discussed include but are not limited to- bleeding, injury to nerves, blood vessels and tendons, infection, wound dehiscence, incomplete relief/continued pain, persistent numbness, palmar hypersensitivity, pillar pain, DVT/PE, complex regional pain syndrome(CRPS), worsening of nerve damage, failure of the condition to improve, incomplete return of function, bowstringing of tendons, weakness of c winforms developer strength, recurrence, failure of the surgery to accomplish the desired goals, decreased use of the hand, loss of use of the arm, loss of the hand or arm, loss of life. Likely need for further surgery in the future has been discussed. I've indicated to the patient where the proposed incision would be made and also discussed the possibility of extending the incision if needed to accomplish an effective release. We have discussed how the goal of surgery is to protect the fibers which have remained healthy and hopefully reverse the symptoms of the fibers which are compromised but still recoverable. We have explained that, fibers that are permanently damaged will not recover. Patient asked appropriate questions and all have been answered by me. Patient wished to proceed with the surgery. Patient understood the risks, agreed to proceed with surgery and no guarantees or assurances were given or implied. The patient was brought to the operating room and placed supine on the operating table. The left upper extremity was placed over a side table. All the bony prominences were well-padded. The patient had a MAC anesthesia administered by the tower cleaner. A well-padded tourniquet cuff was placed over the upper arm. The left upper extremity was prepped and draped in the usual sterile fashion. A preprocedure timeout was performed as per hospital policy. Administration of prophylactic antibiotics was confirmed with the tower cleaner. The skin incision was marked using the Chantelle's landmarks, just ulnar to the thenar crease. The skin and soft tissue around the incision were then infiltrated with 10 mL of 1% lidocaine with epinephrine. The limb was exsanguinated with the Esmarch bandage and tourniquet was inflated to 250 mmHg. Please see nursing records for the total tourniquet time. Chantelle's bismark
== END 2021-04-24 11:44 | disposition home or self-care (01) ==
LOC: OR 08:22
PROVIDERS: PCP Emergency Medicine; Visit Provider Orthopaedic Surgery
PROC: (CPT 64721; principal; 2021-04-24 10:30)
DX: G56.02 Carpal tunnel syndrome, left upper limb (principal)
CPT/HCPCS: 64721; 96374; J2405

== ENCOUNTER 2021-05-02 18:31 | Emergency (ER) | payer MEDICARE, BC, SELFPAY ==
[2021-05-02 18:42] VITALS: BP 146/92; PULSE 103; RESP 18; TEMP 36.6; O2SAT 99; BMI 26.9
[2021-05-02 19:56] VITALS: BP 149/54; PULSE 83; RESP 20; TEMP 36.8; O2SAT 97
--- NOTE | 2021-05-02 19:58 | HMH.EDMCLR ---
ED Disposition Clinical Impression: Medical clearance for incarceration, Problem involving surgical incision Disposition: Home, Self-Care Condition on Discharge: Good Instructions: How to Care for a Surgical Wound Additional Instructions: see pcp next week Prescriptions: cephALEXin [cephALEXin 500mg capsule*] 500 mg PO TID #30 cap Transmission Status: Pending to [facility] Referrals: Braden Kerns MD [Primary Care Provider] - - Critical Care Critical Care Time: No Attestation: On 05/02/21, the high probability of a clinically significant, sudden or life threatening deterioration of the following system(s) required my full and direct attention, intervention and personal management. The time I documented below is in addition to time spent performing reported procedures but includes the following listed in this critical care notation. Medical Decision Making - Medical Records Medical records reviewed: Yes: I reviewed the patient's medical records. - Rey Inquiry Pt receiving controlled substance: No Vital Signs: 05/02/21 18:42 Temperature 97.9 F Temperature Source Oral Pulse Rate [Right Radial] 103 H Respiratory Rate 18 Blood Pressure [Right Arm] 146/92 H Blood Pressure Mean [Right Arm] 110 Blood Pressure Source [Right Arm] Automatic Cuff Blood Pressure Position [Right Arm] Supine 02 Sat by Pulse Oximetry 99 Oxygen Delivery Method Room Air - Lab Data Lab results reviewed: Yes: I reviewed the patient's lab results. Orders (Tests/Meds): ED MEDICATIONS Generic Name Dose Route Start Last Admin Trade Name Freq PRN Reason Stop Dose Admin Mupirocin 1 gm 05/02/21 21:00 Mupirocin 2% Ointment 22gm Tube TP 06/01/21 20:59 BID TANVIR Discontinued Medications Generic Name Dose Route Start Last Admin Trade Name Freq PRN Reason Stop Dose Admin Cephalexin HCl 500 mg 05/02/21 19:51 Cephalexin 500mg Capsule PO 05/02/21 19:52 ONCE ONE Medical Decision Narrative: will follow wd and have ortho see next week on abx unable to close at this time Medical Clearance HPI - General Chief complaint: Medical Clearance Stated complaint: Medical Clearance Time Seen by Provider: 05/02/21 19:50 Mode of Arrival: Ambulatory Source of Information: Patient, Medical Record Limitations: No Limitations Description of Symptoms (Recalled from ER Triage Doc. by RN): Pt is here to medical clearance. Pt has skin issue on left palm. She was suppose to get stitches out on wednesday. She took them out her self. Pt is intoxicated. - History of Present Illness HPI Narrative: pt with recent lt carpal tunnel surg and has open wd as pt took stitches out - MD complaint: medical clearance requested Onset (ago): hour(s) Reason for Medical Clearance: intoxication Place: street Alleged Intoxication: Yes Traumatic Symptoms: denies traumatic injury Associated Symptoms: denies other symptoms Treatments Prior to Arrival: none Home medications: Home Medications Medication Instructions Recorded Confirmed polyethylene glycoL 3350 17 g PO DAILY 02/10/19 04/22/21 [Polyethylene Glycol 3350] Quetiapine Fumarate 100 mg PO DAILY 04/22/21 04/22/21 buPROPion HCL [Wellbutrin SR 100mg 100 mg PO DAILY 04/22/21 04/22/21 Tablet] diazePAM [Valium 2mg tablet] 2 mg PO DAILY 04/22/21 04/22/21 lamoTRIgine [Lamotrigine] 100 pow PO DAILY 04/22/21 04/22/21 Previous Rx's Medication Instructions Recorded clonazepam 0.5 mg tablet 0.5 mg PO BID #60 tab 01/17/21 hydrocodone 5 mg-acetaminophen 325 1 tab PO Q6H PRN #10 tab 04/24/21 mg tablet cephALEXin [cephALEXin 500mg 500 mg PO TID #30 cap 05/02/21 capsule*] Allergies/Adverse reactions: Allergies Allergy/AdvReac Type Severity Reaction Status Date / Time No Known Allergies Allergy Verified 04/24/21 08:32 [facility] History - Hepatitis A Screen Drug use history?: No High risk sexual behaviors?: No History of sexually t
== END 2021-05-02 20:01 | disposition home or self-care (01) ==
PROVIDERS: Emergency Provider Emergency Medicine; PCP Emergency Medicine
DX: F10.929 Alcohol use, unspecified with intoxication, unspecified (principal); F41.8 Other specified anxiety disorders; F17.210 Nicotine dependence, cigarettes, uncomplicated
CPT/HCPCS: 99282

== ENCOUNTER → 2021-05-13 17:31 | Outpatient (CLI) | payer MEDICARE, BC, SELFPAY ==
[2021-05-13 18:58] LABS: Amphetamine/Metha Screen,Urine Negative ng/ml (<1000); Barbiturates Screen,Urine Negative ng/ml (<200); Benzodiazepines Screen,Urine Negative ng/ml (<200); Cannabinoid Screen,Urine Positive ng/ml (<50); Cocaine Screen,Urine Negative ng/ml (<300); Methadone Screen,Urine Negative ng/ml (<300); Opiate Screen,Urine Negative ng/ml (<300); Phencyclidine Screen,Urine Negative ng/ml (<25)
== END ==
PROVIDERS: Visit Provider Emergency Medicine
DX: M47.22 Other spondylosis with radiculopathy, cervical region (principal)
CPT/HCPCS: 80305

== ENCOUNTER → 2021-09-22 09:24 | Outpatient (CLI) | payer MEDICARE, BC, SELFPAY ==
[2021-09-22 15:29] LABS: Amphetamine/Metha Screen,Urine Negative ng/ml (<1000)
[2021-09-22 15:32] LABS: Barbiturates Screen,Urine Negative ng/ml (<200)
[2021-09-22 15:33] LABS: Benzodiazepines Screen,Urine Negative ng/ml (<200); Cannabinoid Screen,Urine Positive ng/ml (<50)
[2021-09-22 15:34] LABS: Cocaine Screen,Urine Negative ng/ml (<300); Methadone Screen,Urine Negative ng/ml (<300)
[2021-09-22 15:35] LABS: Opiate Screen,Urine Negative ng/ml (<300)
[2021-09-22 15:36] LABS: Phencyclidine Screen,Urine Negative ng/ml (<25)
== END ==
PROVIDERS: Visit Provider Emergency Medicine
DX: G89.29 Other chronic pain (principal)
CPT/HCPCS: 80305

== ENCOUNTER → 2022-01-12 06:55 | Outpatient (CLI) | payer MEDICARE, BC, SELFPAY ==
[2022-01-12 19:44] LABS: Benzodiazepines Screen,Urine Negative ng/ml (<200)
[2022-01-12 19:45] LABS: Amphetamine/Metha Screen,Urine Negative ng/ml (<1000); Barbiturates Screen,Urine Negative ng/ml (<200)
[2022-01-12 19:46] LABS: Cannabinoid Screen,Urine Positive ng/ml (<50); Cocaine Screen,Urine Negative ng/ml (<300)
[2022-01-12 19:47] LABS: Methadone Screen,Urine Negative ng/ml (<300)
[2022-01-12 19:48] LABS: Opiate Screen,Urine Negative ng/ml (<300); Phencyclidine Screen,Urine Negative ng/ml (<25)
== END ==
PROVIDERS: PCP Emergency Medicine; Visit Provider Emergency Medicine
DX: M47.812 Spondylosis without myelopathy or radiculopathy, cervical region (principal)
CPT/HCPCS: 80305

== ENCOUNTER 2022-07-14 17:10 | Emergency (ER) | payer MEDICARE, BC, SELFPAY ==
[2022-07-14 17:12] VITALS: BP 165/95; PULSE 82; RESP 18; TEMP 37; O2SAT 96; BMI 30.2
--- NOTE | 2022-07-14 17:29 | XR_ITS ---
PROCEDURE INFORMATION: Exam: XR Right Foot Exam date and time: 07/14/2022 5:28 PM Age: 52 years old Clinical indication: Pain; Foot; Right TECHNIQUE: Imaging protocol: Radiologic exam of the Right foot. Views: 3 or more views. COMPARISON: No relevant prior studies available. FINDINGS: Bones/joints: There is no evidence of acute fracture or dislocation. Mild degenerative changes involve the 1st MTP joint. There is pes cavus positioning. Soft tissues: No significant soft tissue edema. No subcutaneous emphysema or radiopaque foreign bodies. IMPRESSION: No acute posttraumatic osseous injury.
[2022-07-14 17:31] VITALS: BP 106/56; PULSE 82; O2SAT 95
--- NOTE | 2022-07-14 17:40 | PC.NURSE ---
PT RETURNED FROM XR
--- NOTE | 2022-07-14 18:21 | HMH.EDGENADL ---
Discharge Plan Disposition Patient Disposition: Home, Self-Care Condition: Good Prescriptions Prescriptions: New cephalexin 500 mg capsule 500 mg PO Q6H Qty: 28 0RF clotrimazole [Lotrimin AF (clotrimazole)] 1 % cream 1 applic topical BID Qty: 30 0RF No Action clonazepam 0.5 mg tablet 0.5 mg PO BID Qty: 60 2RF lamotrigine 100 mg tablet See Rx Instructions .ROUTE .COMPLEX Qty: 180 3RF Dose Instruction: TAKE ONE TABLET BY MOUTH 2 TIMES A DAY FOR MOOD Rx Instructions: TAKE ONE TABLET BY MOUTH 2 TIMES A DAY FOR MOOD bupropion HCl 100 mg tablet See Rx Instructions .ROUTE .COMPLEX Qty: 180 3RF Dose Instruction: TAKE ONE TABLET BY MOUTH 2 TIMES A DAY FOR MOOD Rx Instructions: TAKE ONE TABLET BY MOUTH 2 TIMES A DAY FOR MOOD quetiapine 100 mg tablet See Rx Instructions .ROUTE .COMPLEX Qty: 180 3RF Dose Instruction: TAKE ONE TABLET BY MOUTH 2 TIMES A DAY FOR MOOD Rx Instructions: TAKE ONE TABLET BY MOUTH 2 TIMES A DAY FOR MOOD polyethylene glycol 3350 17 GM powder in packet 17 g PO DAILY Referrals Follow up/Referrals: Braden Kerns MD [Primary Care Provider] - See instructions Ashly Soto DPM [Staff Physician] - See instructions Activity Restrictions/Add. Instructions Additional Instructions/Restrictions: Keflex as prescribed. Clean foot twice daily with soap and water and apply Lotrimin cream twice daily. Follow-up with podiatry soon as possible, call Dr. Soto for appointment. Clinical Impressions Clinical Impression: Skin lesion of foot Discharge ED Provider: Tan Nweell General Adult HPI General Chief complaint: Extremity Injury, Lower Stated complaint: right foot pain Time Seen by Provider: 07/14/22 18:10 Mode of Arrival: Ambulatory Limitations: No Limitations Description of Symptoms (Recalled from ER Triage Doc. by RN): PT REPORTS RIGHT FOOT PAIN X A COUPLE WEEKS STATES PAIN WOKE HER UP THROBBING. NO INJURY. HAS OPEN AREA BETWEEN 4-5TH TOE. History of Present Illness HPI narrative: States that she woke up 2 weeks ago in the middle the night with the pain in her right foot, indicates the region around the fourth and fifth toes. She says that she saw her primary care provider, Dr. Kerns, about a week ago for a different issue and thought about mentioning it to him but by that time she says the pain had markedly decreased. However she says now the pain is increasing again and she has skin breakdown in between her fourth and fifth toes. No trauma remembered. No fever. She is not diabetic. Related Data Home Medications Medication Instructions Recorded Confirmed polyethylene glycol 3350 17 gram 17 g PO DAILY costipation 02/10/19 07/10/22 oral powder packet Previous Rx's Medication Instructions Recorded bupropion HCl 100 mg tablet See Rx Instructions .Route 03/16/22 .COMPLEX #180 tabs lamotrigine 100 mg tablet See Rx Instructions .Route 03/16/22 .COMPLEX #180 tabs quetiapine 100 mg tablet See Rx Instructions .Route 03/16/22 .COMPLEX #180 tabs clonazepam 0.5 mg tablet 0.5 mg PO BID Anxiety #60 tabs 07/10/22 cephalexin 500 mg capsule 500 mg PO Q6H #28 caps 07/14/22 clotrimazole 1 % topical cream 1 applic topical BID #30 grams 07/14/22 (Lotrimin AF (clotrimazole)) Allergies Allergy/AdvReac Type Severity Reaction Status Date / Time No Known Allergies Allergy Verified 07/10/22 09:02 [facility] Disclaimer: The information contained in this section may have been updated after the patient was seen, as this information can be updated by other users. Medical History Abnormal MRI, cervical spine Bipolar disorder Cervical spondylosis Cervical stenosis of spinal canal Osteophyte of cervical spine Social History Smoking Status: Current every day smoker tobacco type: cigarettes packs per da
[2022-07-14 18:50] VITALS: BP 124/71; PULSE 79; RESP 19; TEMP 36.8; O2SAT 98
== END 2022-07-14 18:54 | disposition home or self-care (01) ==
PROVIDERS: Emergency Provider Emergency Medicine; PCP Emergency Medicine
DX: L98.9 Disorder of the skin and subcutaneous tissue, unspecified (principal); M47.892 Other spondylosis, cervical region; M48.02 Spinal stenosis, cervical region; F17.210 Nicotine dependence, cigarettes, uncomplicated
CPT/HCPCS: 73630; 87070; 87077; 87186; 87205; 99283; 99284